=== PATIENT | male | born 1980 | race Caucasian/White ===

== ENCOUNTER 2019-11-21 09:13 | Emergency (ER) | payer MEDICARE, MEDICAID, SELFPAY ==
--- NOTE | ~2019-11-21 | CT_ITS ---
EXAMINATION: CT abdomen pelvis wo con EXAM DATE: 11/21/2019 10:30 INDICATION: Generalized abdominal pain, symptoms 2 days. TECHNIQUE: Spiral CT of the abdomen and pelvis was performed without contrast. Axial, coronal and s agittal images were reviewed. The dose-length product (DLP) for this examination was 1462.81 mGy-cm. The exposure was tailored according to patient size (auto mA exposure control), and iterative recon struction (ASIR) was used as additional dose reduction technique. Comparison is made to prior examina tion from 05/30/2018. FINDINGS: The liver, spleen, adrenal glands and pancreas are unremarkable. The gallbladder is disten ded but otherwise unremarkable. There is no biliary duct dilation. There is no nephrolithiasis or h ydronephrosis. The prostate is unremarkable. The bladder is collapsed at time of imaging limiting evaluation. There is no retroperitoneal or pelvic lymphadenopathy. There is focal outpouching along a portion of jejunum which is presently located in the midabdomen, s ee axial image 98, most likely a jejunal diverticula. There is associated adjacent inflammation. No e vidence of perforation or abscess. The appendix is not positively visualized. There is no pericecal inflammatory change to suggest appendicitis. There is a 3 cm duodenal diverticulum. There is mild s igmoid colonic diverticulosis. There is no adjacent inflammatory change to suggest diverticulitis. T here is expected amount of colonic stool. No free intraperitoneal gas. The heart is normal in siz e. There are no pericardial or pleural effusions. The lung bases are unremarkable. There are no os teoblastic or osteolytic lesions identified. On previous examination there is some nonspecific inflammation along the duodenum and root of the mes entery, uncertain whether or not patient's prior episode was also result of jejunal diverticulitis gi rahel that cannot identify inflammation associated with any specific outpouching on the prior examinati on. IMPRESSION: 1. Jejunal outpouching, adjacent inflammation. Probably acute uncomplicated jejunal diverticulitis. 2. Duodenal, colonic diverticulum Reviewed, dictated and finalized at location B. IMPRESSION: 1. Jejunal outpouching, adjacent inflammation. Probably acute uncomplicated je junal diverticulitis. 2. Duodenal, colonic diverticulum
--- NOTE | 2019-11-21 10:00 | ECG_ITS ---
Measurements Intervals [place] Rate: 102 P: 15 [place]: 145 QRS: -34 QRSD: 101 T: 14 QT: 349 QTc: 457 Interpretive Statements SINUS TACHYCARDIA LEFT AXIS DEVIATION BORDERLINE R WAVE PROGRESSION, ANTERIOR LEADS MINIMAL Q WAVES- HIGH LATERAL LEADS BORDERLINE T WAVE ABNORMALITY- INFERIOR LEADS BORDERLINE ECG Electronically Signed On 11-21-2019 10:24:22 CDT by Polo Madsen D.O.
[2019-11-21 10:17] LABS: Add Urine Microscopic? YES; Appearance Urine Clear (Clear); Basophils Absolute Auto 0.08 K/mm3 (0.00-0.10); Basophils Percent Auto 0.6 % (0.0-1.0); Bilirubin Urine 1+ (Negative); Blood Urine Negative (Negative); Color Urine Yellow (Yellow); Eosinophils Absolute Auto 0.33 K/mm3 (0.02-0.50); Eosinophils Percent Auto 2.3 % (1.0-6.0); Glucose Urine UA Negative (Negative); Hematocrit 44.7 % (40.0-54.0); Hemoglobin 15.3 g/dL (14.0-18.0); Immature Granulocyte Absolute 0.04 K/mm3 (0.00-0.00); Immature Granulocyte Percent A 0.3 % (0.0-0.0); Ketones Urine Trace (Negative); Leukocyte Esterase Ur Negative LEU/UL (Negative); Lymphocytes Absolute Auto 4.89 K/mm3 (1.10-4.50); Lymphocytes Percent Auto 34.4 % (18.0-42.0); Mean Corpuscular HGB Conc 34.2 g/dL (32.0-36.0); Mean Corpuscular Hemoglobin 30.3 pg (27.0-31.0); Mean Corpuscular Volume 88.5 fL (78.0-102.0); Mean Platelet Volume 9.5 fl (8.7-11.0); Monocytes Absolute Auto 0.93 K/mm3 (0.10-0.90); Monocytes Percent Auto 6.5 % (2.0-11.0); Neutrophils Percent Auto 55.9 % (50.0-70.0); Nitrate Urine Positive (Negative); Platelet Count Result 176 K/mm3 (150-420); Protein Urine Trace (Negative); Red Blood Count 5.05 M/mm3 (4.70-6.10); Red Cell Distribution Width 12.3 % (11.6-14.4); White Blood Count 14.2 K/mm3 (4.8-10.8); pH Urine 6.5 (5.0-8.0)
--- NOTE | 2019-11-21 10:17 | ED.ABDPAIN ---
HPI - Abdominal Pain General Chief Complaint: Abdominal Pain Stated Complaint: ABD PAIN Source: patient Limitations: no limitations History of Present Illness HPI narrative: This patient is a 39-year-old male who states he started having abdominal pain approximately 3 days ago. Patient states that initially the pain was in the left side of his abdomen, however it has been spreading more towards the right. He states the abdominal pain encompasses the majority of his abdomen at this point. There are no exacerbating or relieving factors. He does state that he has not been eating very much because he is fearful that will make the pain worse, however it has not made it worse yet. He is having normal bowel movements and normal urination is he denies fevers or chills. He does have a history of pancreatitis, however he states that this is not the same type of pain that he usually has with his pancreatitis. MD elicited complaint: abdominal pain Pertinent past history: none Onset (ago): day(s) ( Three) Pain Consistency: constant Location: diffuse Severity: moderate Quality: aching and sharp ( occasional) Radiation: none Migration to: no migration ( migration throughout the entire abdomen pain seems to move.) Exacerbating factors: nothing Relieving factors: nothing Associated symptoms: denies other symptoms Related Data Home Medications Medication Instructions Recorded Confirmed buprenorphine-naloxone [Suboxone] 3 film SUBLINGUAL DAILY 11/21/19 11/21/19 gabapentin 300 mg PO TID 11/21/19 11/21/19 hydroxyzine pamoate 50 mg PO BID 11/21/19 11/21/19 insulin aspart U-100 [Novolog See Rx Instructions .ROUTE .COMPLEX 11/21/19 11/21/19 Flexpen U-100 Insulin] insulin glargine [Basaglar KwikPen SUBCUT 11/21/19 U-100 Insulin] lisinopril 10 mg PO DAILY 11/21/19 11/21/19 mirtazapine 30 mg PO HS 11/21/19 11/21/19 omeprazole 20 mg PO DAILY 11/21/19 11/21/19 paliperidone palmitate [Invega 234 mg IM MONTHLY 11/21/19 11/21/19 Sustenna] simvastatin 20 mg PO DAILY 11/21/19 11/21/19 vilazodone [Viibryd] 20 mg PO DAILY 11/21/19 11/21/19 Allergies Allergy/AdvReac Type Severity Reaction Status Date / Time Penicillins Allergy Anaphylaxis Verified 11/21/19 09:54 amoxicillin AdvReac Anaphylaxis Verified 11/21/19 09:53 Review of Systems Constitutional: Constitutional: Reports as per HPI and Reports no additional constitutional complaints Eyes: Eyes: Reports as per HPI and Reports no additional eye complaints ENT: Reports system reviewed and no additional complaints, except as documented Cardiovascular: Cardiovascular: Reports no additional cardiovascular complaints Respiratory: Respiratory: Reports no additional respiratory complaints Gastrointestinal: Gastrointestinal: Reports abdominal pain, Denies bloating, Denies constipation, Denies heartburn, Denies diarrhea, Denies nausea and Denies vomiting Genitourinary: Genitourinary: Reports no additional male genitourinary complaints, Denies dysuria and Denies urinary frequency Musculoskeletal: Musculoskeletal: Reports no additional musculoskeletal complaints Integumentary/Breasts: Skin/Breast: Reports system reviewed and no additional complaints, except as docu Neurologic: Reports system reviewed and no additional complaints, except as documented Psychiatric: Psychiatric: Reports no additional psychiatric complaints Hematologic/Lymphatic: Hematologic/Lymphatic: Reports no additional hematologic/lymphatic complaints Allergic/Immunologic: Allergic/Immunologic: Reports no additional allergic/immunologic complaints PMFSH Social History Social History (Updated 11/21/19 @ 10:23 by Lcuy Reyes MD) Smoking status: Current every day smoker Alcohol intake: current Alcohol use details: rare Substance use type: former substance user Exam Const: General: no acute distress and alert Nutritional Appearance: well nourished and obese Orientation/consciousness: patient kathy
[2019-11-21 10:24] LABS: RBC Urine 0-2 /hpf (0-2)
[2019-11-21 10:25] LABS: Bacteria Urine 3+ /hpf; Mucus Urine Heavy /lpf; Squamous Epithelial Cell Urine Occasional /hpf (Few); WBC Urine 0-3 /hpf (0-3)
[2019-11-21 10:30] LABS: Prothrombin Time 10.7 Seconds (9.64-11.0)
[2019-11-21 10:33] LABS: Lactic Acid Reflex 1.4 mmol/L (0.4-2.0)
[2019-11-21 10:43] LABS: Alanine Aminotransferase 29 U/L (16-63); Albumin Level 3.3 g/dL (3.4-5.0); Alkaline Phosphatase 64 U/L (46-116); Anion Gap 12.5 mmol/L (7-16); Aspartate Amino Transferase 16 U/L (15-37); Bilirubin,Total 0.5 mg/dL (0.00-1.00); Blood Urea Nitrogen 15 mg/dL (7-18); Calcium 9.1 mg/dL (8.5-10.1); Carbon Dioxide 27 mmol/L (21-32); Chloride 95 mmol/L (98-108); Estimated Glomerular Filt Rate > 60; Glucose 218 mg/dL (70-99); Lipase 148 U/L (73-393); Osmolality Calculated 277 mOsm/kg (285-295); Potassium 4.5 mmol/L (3.5-5.1); Sodium 130 mmol/L (136-145); Total Protein 8.2 g/dL (6.4-8.2); Troponin I < 0.02 ng/mL (0.00-0.056)
[2019-11-21] MEDS: SODIUM CHLORIDE 0.9% IV 2,000 ML 999 ML IV CONT (10:44)
[2019-11-21 10:49] VITALS: BP 107/68; PULSE 106; RESP 14; TEMP 37.1; O2SAT 94
[2019-11-21 10:51] LABS: Amphetamine Screen Urine Negative (Negative); Barbiturate Screen Urine Negative (Negative); Benzodiazepines Screen Urine Negative (Negative); Cannabinoid Screen Urine Negative (Negative); Cocaine Screen Urine Negative (Negative); Methadone Screen Urine Negative (Negative); Opiate Screen Urine Negative (Negative); Phencyclidine Screen Urine Negative (Negative)
[2019-11-22 11:34] LABS: Glucose Point of Care 237 (65-105)
== END 2019-11-21 12:15 | disposition home or self-care (01) ==
PROVIDERS: Emergency Provider Emergency Medicine; PCP Physician Assistant
DX: K57.92 Diverticulitis of intestine, part unspecified, without perforation or abscess without bleeding (principal); Z79.899 Other long term (current) drug therapy; F17.200 Nicotine dependence, unspecified, uncomplicated
CPT/HCPCS: 36415; 74176; 80053; 80307; 81001; 83605; 83690; 84484; 85025; 85610; 87086; 93005; 96360; 99284; J7030

== ENCOUNTER 2020-01-25 10:14 | Outpatient (CLI) | payer MEDICARE, SELFPAY ==
[2020-01-25 10:25] LABS: Basophils Absolute Auto 0.07 K/mm3 (0.00-0.10); Basophils Percent Auto 0.9 % (0.0-1.0); Eosinophils Absolute Auto 0.24 K/mm3 (0.02-0.50); Hematocrit 47.1 % (40.0-54.0); Hemoglobin 15.4 g/dL (14.0-18.0); Immature Granulocyte Absolute 0.01 K/mm3 (0.00-0.00); Immature Granulocyte Percent A 0.1 % (0.0-0.0); Lymphocytes Absolute Auto 3.99 K/mm3 (1.10-4.50); Lymphocytes Percent Auto 49.8 % (18.0-42.0); Mean Corpuscular HGB Conc 32.7 g/dL (32.0-36.0); Mean Corpuscular Hemoglobin 28.9 pg (27.0-31.0); Mean Corpuscular Volume 88.4 fL (78.0-102.0); Mean Platelet Volume 9.6 fl (8.7-11.0); Monocytes Absolute Auto 0.57 K/mm3 (0.10-0.90); Monocytes Percent Auto 7.1 % (2.0-11.0); Neutrophils Absolute Auto 3.1 K/mm3 (1.7-7.2); Neutrophils Percent Auto 39.1 % (50.0-70.0); Platelet Count Result 167 K/mm3 (150-420); Red Blood Count 5.33 M/mm3 (4.70-6.10); Red Cell Distribution Width 11.9 % (11.6-14.4)
[2020-01-25 10:39] LABS: Hemoglobin A1C 9.8 % (<5.7)
[2020-01-25 11:29] LABS: Alanine Aminotransferase 30 U/L (16-63); Alkaline Phosphatase 85 U/L (46-116); Anion Gap 6 mmol/L (8-16); Aspartate Amino Transferase 31 U/L (15-37); Bilirubin,Total 0.4 mg/dL (0.00-1.00); Blood Urea Nitrogen 8 mg/dL (7-18); Calcium 8.9 mg/dL (8.5-10.1); Carbon Dioxide 30 mmol/L (21-32); Chloride 98 mmol/L (98-108); Cholesterol 154 mg/dL (0-200); Estimated Glomerular Filt Rate > 60; Glucose 300 mg/dL (70-99); HDL Direct 34 mg/dL (40-60); LDL Cholesterol Calculated 67 mg/dL (<130); Osmolality Calculated 287 mOsm/kg (285-295); Potassium 5.4 mmol/L (3.5-5.1); Sodium 134 mmol/L (136-145); Total Protein 8.8 g/dL (6.4-8.2); Triglycerides 264 mg/dL (0-150)
== END 2020-01-25 10:15 | disposition home or self-care (01) ==
PROVIDERS: PCP Physician Assistant; Visit Provider Psychiatry & Neurology Psychiatry
DX: Z79.899 Other long term (current) drug therapy (principal)
CPT/HCPCS: 36415; 80053; 80061; 83036; 85025

== ENCOUNTER 2020-07-22 13:58 | Emergency (ER) | payer MEDICARE, MEDICAID, SELFPAY ==
[2020-07-22 14:00] VITALS: BP 125/77; PULSE 95; RESP 16; TEMP 36.5; O2SAT 98
--- NOTE | 2020-07-22 14:22 | ED.GENADULT ---
HPI - General Adult General Chief complaint: Unspecified Stated complaint: swelling L side of face Source: patient Mode of arrival: ambulatory Limitations: no limitations History of Present Illness HPI narrative: 40-year-old male that presents with some swelling and erythema in the left jaw area and with some tenderness with palpation erythema warmth and tenderness currently no discharge does have a swollen tender submandibular gland on the left with no left ear pain or drainage from the left ear canal, no sore throat no tooth decay it is currently no fever chills no shortness of breath no nausea vomiting. The patient is a diabetic and states his his diabetes is moderately controlled currently there is no diaphoresis no abdominal pain no dysuria. Onset (ago): day(s) Location: face Radiation: non-radiation Severity: moderate Severity scale (1-10): 6 Pain Consistency: intermittent Relieving factors: eating and movement Associated symptoms: denies other symptoms Related Data Home Medications Medication Instructions Recorded Confirmed buprenorphine-naloxone [Suboxone] 3 film SUBLINGUAL DAILY 11/21/19 07/22/20 gabapentin 300 mg PO TID 11/21/19 07/22/20 hydroxyzine pamoate 50 mg PO BID 11/21/19 07/22/20 insulin aspart U-100 [Novolog See Rx Instructions .ROUTE .COMPLEX 11/21/19 07/22/20 Flexpen U-100 Insulin] insulin glargine [Basaglar KwikPen 1 unit SUBCUT DAILY 11/21/19 07/22/20 U-100 Insulin] lisinopril 10 mg PO DAILY 11/21/19 07/22/20 mirtazapine 30 mg PO HS 11/21/19 07/22/20 omeprazole 20 mg PO DAILY 11/21/19 07/22/20 paliperidone palmitate [Invega 234 mg IM MONTHLY 11/21/19 07/22/20 Sustenna] simvastatin 20 mg PO DAILY 11/21/19 07/22/20 vilazodone [Viibryd] 20 mg PO DAILY 11/21/19 07/22/20 Allergies Allergy/AdvReac Type Severity Reaction Status Date / Time Penicillins Allergy Anaphylaxis Verified 11/21/19 09:54 amoxicillin AdvReac Anaphylaxis Verified 11/21/19 09:53 Review of Systems Review of Systems: All systems reviewed & are unremarkable except as noted in HPI and below PMFSH Past Medical History Medical History Diabetes Social History Social History Smoking status: Current every day smoker Alcohol intake: current Substance use type: former substance user Exam Const: General: cooperative HENMT: Head: normal to inspection Head images: 1. Swelling tenderness and erythema with no drainage General nose exam: Normal external nose present Mouth: Yes Normal oral and palatal mucosa present Teeth and gingiva: dentition normal and gingiva normal Throat: posterior oropharynx normal and tonsils normal Eyes: General: appearance normal, both eyes and all related structures EOM: EOMs intact bilaterally Neck: Neck: normal visual inspection Chest: Chest palpation & inspection: normal inspection of the chest Resp: Effort & Inspection: normal respiratory effort and able to speak in complete sentences Auscultation: clear to auscultation bilaterally Cardio: Jugular venous distension: no JVD Palpation: normal PMI GI: Inspection: normal to inspection Percussion: Yes normal to percussion Auscultation: normal bowel sounds Back/Spine/Pelvis: Back: no CVA tenderness Skin: Other: area of erythema and swelling right jaw area right below his left earlobe that is tender and painful and red to touch with no drainage. Neuro: General: oriented to person, oriented to place and oriented to time Psych: Appearance: grossly normal and well kempt Mental Status: mental status grossly normal Course Course Emergency Course: Patient declined any pain medicine will give him a shot of clindamycin IM patient is allergic to penicillins. Did discuss that he needs follow-up with his primary care physician should this not improve after about a week or so. And can take Aleve along with antibiotic t
[2020-07-22] MEDS: CLINDAMYCIN HCL 150 MG CAP 600 MG PO (15:17)
== END 2020-07-22 15:19 | disposition home or self-care (01) ==
PROVIDERS: Emergency Provider Emergency Medicine; PCP Physician Assistant
DX: L03.211 Cellulitis of face (principal)
CPT/HCPCS: 99283; A9270

== ENCOUNTER 2021-04-01 15:37 | Outpatient (CLI) | payer MEDICARE, SELFPAY ==
--- NOTE | 2021-04-01 15:42 | ECG_ITS ---
Measurements Intervals [place] Rate: 97 P: 42 [place]: 150 QRS: -21 QRSD: 106 T: 22 QT: 383 QTc: 488 Interpretive Statements SINUS RHYTHM DELAYED PRECORDIAL R/S TRANSITION PROLONGED QT INTERVAL BASELINE ARTIFACT- V1 ABNORMAL ECG Electronically Signed On 04-01-2021 16:23:36 [employer]RE [employer]ANCER by Polo Madsen D.O.
== END 2021-04-01 15:38 | disposition home or self-care (01) ==
LOC: CHSCARD 15:42
PROVIDERS: PCP Physician Assistant; Visit Provider Internal Medicine Cardiovascular Disease
DX: R07.9 Chest pain, unspecified (principal)
CPT/HCPCS: 93005

== ENCOUNTER 2021-05-06 12:00 | Outpatient (CLI) | payer OTHER, SELFPAY ==
--- NOTE | 2021-05-06 12:10 | EST_ITS ---
Patient Info Name: Adolfo Zambrano Age: 40 years : 1980 Gender: Male Ht: 66 in Wt: 277 lbs BSA: 2.49 m2 Exam Date: 05/06/2021 12:56 PM Exam Location: [place] [facility] Patient Status: Outpatient Admit Date: 05/06/2021 Staff Ordering Physician: Polo Madsen DO Attending Provider: Polo Madsen DO Exam Type: CA stress sadiq w NM Summary 1. 1. Negative lexiscan stress test for ischemic ST changes by ECG criteria. 2. 2. Stable hemodynamics throughout the test. 3. 3. Nuclear scan to follow and will be reported separately. Please correlate with it. 4. 4. Patient informed of the above results. Protocol: LEXISCAN Stress ECG Details Stage: REST Duration (min): 3 min : 39 sec HR (bpm): 84 SBP (mmHg): 120 DBP (mmHg): 74 Stage: REST Duration (min): 6 min : 14 sec HR (bpm): 88 SBP (mmHg): 120 DBP (mmHg): 74 Stage: STAGE 1 Duration (min): 0 min : 6 sec HR (bpm): 86 SBP (mmHg): 120 DBP (mmHg): 74 Stage: RECOVERY Duration (min): 0 min : 53 sec HR (bpm): 105 SBP (mmHg): 120 DBP (mmHg): 74 Stage: RECOVERY Duration (min): 1 min : 53 sec HR (bpm): 93 SBP (mmHg): 131 DBP (mmHg): 76 Stage: RECOVERY Duration (min): 2 min : 53 sec HR (bpm): 91 SBP (mmHg): 132 DBP (mmHg): 77 Stage: RECOVERY Duration (min): 3 min : 53 sec HR (bpm): 90 SBP (mmHg): 131 DBP (mmHg): 76 Stage: RECOVERY Duration (min): 4 min : 53 sec HR (bpm): 91 SBP (mmHg): 127 DBP (mmHg): 76 Stage: RECOVERY Duration (min): 5 min : 53 sec HR (bpm): 88 SBP (mmHg): 127 DBP (mmHg): 77 Stage: RECOVERY Duration (min): 6 min : 3 sec HR (bpm): 87 SBP (mmHg): 127 DBP (mmHg): 77 Rest HR: 88 bpm Peak HR: 106 bpm Rest Sys BP: 120 mmHg Peak Sys BP: 132 mmHg Max Pred HR: 181 bpm % Max Pred HR: 59 % Target HR: 154 bpm Max RPP: 13,992 bpm*mmHg Termination Reason: Completed protocol Cardiac Symptoms: Shortness of breath Total Time: 0 min : 6 sec Rest [place] BP: 74 mmHg Peak [place] BP: 77 mmHg Total Dose: 0.4 mg Resting ECG Sinus rhythm. Stress ECG No ST changes. Arrhythmias None. Report Signatures
--- NOTE | 2021-05-06 15:05 | WPDCARIOSTRE ---
Nuclear Stress Test INDICATIONS Indications: Chest pain PROCEDURE Procedure Performed: Myocardial Perf Spect-Multi Procedure: Patient underwent a lexiscan stress test and immediately was injected with 31.6 mCi of cardiolyte. Multiple tomographic images were obtained. These are of good quality. There is evidence of small size, mild severity apical and inferior perfusion defects during stress imaging. A separate resting images were obtained after patient was injected with 9.4 mCi of cardiolyte. Multiple tomographic images were obtained. These are of good quality. There is evidence of small size, mild severity apical and inferior perfusion defects during rest imaging. CONCLUSION Conclusion: 1. Myocardial perfusion imaging demonstrating fixed small apical and inferior perfusion defects suggestive of diaphragmatic artifact. 2. No evidence of reversible ischemia. 3. Left ventriculogram demonstrates normal measured ejection fraction of 66%. No wall motion abnormalities. 4. TID score 1.06 is normal.
== END 2021-05-06 12:01 | disposition home or self-care (01) ==
LOC: CHSCARD 12:02
PROVIDERS: PCP Physician Assistant; Visit Provider Internal Medicine Cardiovascular Disease
DX: R07.9 Chest pain, unspecified (principal)
CPT/HCPCS: 78452; 93017; A9502; J2785

== ENCOUNTER 2022-10-14 11:33 | Emergency (ER) | payer OTHER, SELFPAY ==
[2022-10-14] VITALS (11 sets, daily range): BP systolic 119–142; BP diastolic 77–95; PULSE 117; RESP 18; TEMP 36.9–37.1; O2SAT 90–96
--- NOTE | ~2022-10-14 | US_ITS ---
EXAMINATION: US right upper quadrant DATE: 10/14/2022 12:39 INDICATION: Right upper quadrant abdominal pain. TECHNIQUE: Multiple grayscale and Doppler ultrasound images of the abdomen were obtained. COMPARISON: CT abdomen and pelvis 11/21/2019 FINDINGS: The visualized portions of the head and body of the pancreas are normal. There is diffuse h epatic steatosis. The gallbladder is distended and contains sludge. No visible gallstones. No gallbla dder wall thickening or sonographic Lind sign. The common duct is normal and measures 4 mm. There i s normal flow in main portal vein. IMPRESSION: 1. Distended gallbladder with sludge, but no wall thickening, visible gallstones, or gallbladder wall thickening to suggest acute cholecystitis. 2. Diffuse hepatic steatosis. Reviewed, dictated and finalized at location A. IMPRESSION: 1. Distended gallbladder with sludge, but no wall thickening, visible gallstone s, or gallbladder wall thickening to suggest acute cholecystitis. 2. Diffuse hepatic steatosis.
--- NOTE | 2022-10-14 11:39 | ED.ABDPAIN ---
HPI - Abdominal Pain General Chief Complaint: Abdominal Pain Stated Complaint: right side abdominal pain Time Seen by Provider: 10/14/22 11:39 Source: patient and RN notes reviewed Mode of arrival: ambulatory Limitations: no limitations History of Present Illness MD elicited complaint: abdominal pain Pertinent past history: none Onset (ago): day(s) (10) Pain Consistency: intermittent Location: RUQ Severity: moderate Quality: cramping and aching Radiation: none Migration to: no migration Exacerbating factors: eating Relieving factors: nothing Associated symptoms: denies other symptoms Related Data Home Medications Medication Instructions Recorded Confirmed insulin aspart U-100 100 unit/mL See Rx Instructions .Route .COMPLEX 11/21/19 10/14/22 (3 mL) subcutaneous pen (Novolog FlexPen U-100 Insulin aspart) mirtazapine 30 mg tablet 30 mg PO HS 11/21/19 10/14/22 omeprazole 20 mg capsule,delayed 20 mg PO DAILY 11/21/19 10/14/22 release paliperidone palmitate 234 mg/1.5 234 mg IM MONTHLY 11/21/19 10/14/22 mL intramuscular syringe (Invega Sustenna) Allergies Allergy/AdvReac Type Severity Reaction Status Date / Time Penicillins Allergy Anaphylaxis Verified 10/14/22 11:43 amoxicillin AdvReac Anaphylaxis Verified 10/14/22 11:43 Review of Systems Review of Systems: All systems reviewed & are unremarkable except as noted in HPI and below PMFSH Past Medical History Medical History (Updated 10/14/22 @ 12:58 by Jose Castellanos MD) Diabetes Dyslipidemia Hypertension Obesity Social History Social History Smoking packs per day: 2 Smoking cigarettes per day: 40.0 Smoking status: Current every day smoker Tobacco type: cigarettes Alcohol intake: current Alcohol use details: rare Substance use type: former substance user Exam Const: General: healthy appearing, no acute distress and alert Nutritional Appearance: well nourished and obese Orientation/consciousness: patient oriented x3 Limitations: no limitations HENMT: Head: normal to inspection Ears: external ears normal Face/Nose/Sinus: Normal external nose present Face and sinus: normal facial exam Mouth: Yes moist mucous membranes Eyes: Conjunctivae: conjunctivae normal Pupils: Equal, round and reactive pupils present EOM: EOMs intact bilaterally Neck: Neck: normal visual inspection Resp: Effort & Inspection: normal respiratory effort Auscultation: clear to auscultation bilaterally Cardio: Rate: regular rate Rhythm: regular rhythm GI: GI Palp: Yes Soft to palpation, Yes Tenderness to palpation present (GI) ( Moderate right upper quadrant), Yes Guarding due to palpation present (GI) ( moderate right upper quadrant) and No Rebound tenderness present Auscultation: normal bowel sounds Other: positive Lind's sign Back/Spine/Pelvis: Back: no CVA tenderness Cervical Spine: cervical ROM normal Thoracic/Lumbar Spine: thoraco-lumbar ROM normal Skin: General skin exam: normal color Rashes: no rashes Neuro: General: patient oriented x3, moves all extremities, no focal motor deficits and CN's II-XI intact bilaterally Speech: normal speech Gait exam (Neuro): Normal gait present Extrem: General: normal to inspection and no clubbing, cyanosis or edema Psych: Mental Status: mental status grossly normal Affect: normal affect Attitude: cooperative Course Vital Signs Vital signs: Vital Signs Temperature 37.1 C 10/14/22 11:33 Pulse Rate 117 H 10/14/22 11:33 Respiratory Rate 18 10/14/22 11:33 Blood Pressure 119/77 10/14/22 11:33 Pulse Oximetry 93 10/14/22 11:33 Oxygen Delivery Room Air 10/14/22 11:33 Temperature 36.9 C 10/14/22 13:14 Pulse Rate 117 H 10/14/22 13:14 Respiratory Rate 18 10/14/22 13:14 Blood Pressure 126/81 10/14/22 13:14 Pulse Oximetry 96 10/14/22 13:14 Oxygen Delivery Room Air 10/14/22 13:14 MDM - A
[2022-10-14 12:17] LABS: Basophils Absolute Auto 0.05 K/mm3 (0.00-0.10); Eosinophils Absolute Auto 0.13 K/mm3 (0.02-0.50); Eosinophils Percent Auto 2.6 % (1.0-6.0); Hematocrit 40.4 % (40.0-54.0); Hemoglobin 14.2 g/dL (14.0-18.0); Immature Granulocyte Absolute 0.01 K/mm3 (0.00-0.00); Immature Granulocyte Percent A 0.2 % (0.0-0.0); Immature Platelet Fraction Pct 1.8 % (1.0-7.0); Lymphocytes Absolute Auto 1.97 K/mm3 (1.10-4.50); Lymphocytes Percent Auto 39.4 % (18.0-42.0); Mean Corpuscular HGB Conc 35.1 g/dL (32.0-36.0); Mean Corpuscular Hemoglobin 32.3 pg (27.0-31.0); Mean Corpuscular Volume 91.8 fL (78.0-102.0); Mean Platelet Volume 9.4 fl (8.7-11.0); Monocytes Absolute Auto 0.42 K/mm3 (0.10-0.90); Monocytes Percent Auto 8.4 % (2.0-11.0); Neutrophils Absolute Auto 2.4 K/mm3 (1.7-7.2); Neutrophils Percent Auto 48.4 % (50.0-70.0); Platelet Count Result 105 K/mm3 (150-420)
[2022-10-14 12:39] LABS: Alanine Aminotransferase 27 U/L (16-63); Albumin Level 3.5 g/dL (3.4-5.0); Alkaline Phosphatase 76 U/L (46-116); Amylase 31 U/L (25-115); Anion Gap 9 mmol/L (8-16); Aspartate Amino Transferase 26 U/L (15-37); Bilirubin,Total 1.1 mg/dL (0.00-1.00); Blood Urea Nitrogen 5 mg/dL (7-18); CRP 3.2 mg/dL (0.0-0.9); Calcium 9.1 mg/dL (8.5-10.1); Carbon Dioxide 28 mmol/L (21-32); Chloride 102 mmol/L (98-108); Estimated CRCL calculation 122 ml/min; Estimated Glomerular Filt Rate > 60; Glucose 180 mg/dL (70-99); Lipase 43 U/L (16-77); Osmolality Calculated 290 mOsm/kg (285-295); Potassium 3.9 mmol/L (3.5-5.1); Sodium 139 mmol/L (136-145); Total Protein 8.6 g/dL (6.4-8.2)
== END 2022-10-14 13:16 | disposition home or self-care (01) ==
PROVIDERS: Emergency Provider Emergency Medicine; PCP Physician Assistant
DX: K82.8 Other specified diseases of gallbladder (principal); E11.9 Type 2 diabetes mellitus without complications; E78.5 Hyperlipidemia, unspecified; I10 Essential (primary) hypertension; E66.01 Morbid (severe) obesity due to excess calories; Z68.41 Body mass index [BMI] 40.0-44.9, adult; F17.210 Nicotine dependence, cigarettes, uncomplicated; Z79.4 Long term (current) use of insulin
CPT/HCPCS: 36415; 76705; 80053; 82150; 83690; 85025; 85055; 86140; 99284

== ENCOUNTER 2023-03-02 14:24 | Emergency (ER) | payer OTHER, SELFPAY ==
[2023-03-02 14:27] VITALS: BP 153/88; PULSE 104; RESP 17; TEMP 37.1; O2SAT 98
[2023-03-02 14:29] LABS: Glucose Point of Care 257 mg/dl (65-105)
--- NOTE | 2023-03-02 14:44 | ECG_ITS ---
Measurements Intervals [place] Rate: 98 P: 27 [place]: 147 QRS: -10 QRSD: 102 T: 0 QT: 378 QTc: 484 Interpretive Statements SINUS RHYTHM MINIMAL VOLTAGE CRITERIA FOR LVH, CONSIDER NORMAL VARIANT [MEETS CRITERIA IN ONE OF: R(aVL), S(V1), R(V5), R(V5/V6)+S(V1)] ABNORMAL ECG COMPARED TO ECG 04/01/2021 15:54:29 PROLONGED QT INTERVAL NO LONGER PRESENT Electronically Signed On 03-04-2023 10:25:36 CDT by Eduardo Sotelo M.D.
--- NOTE | 2023-03-02 14:44 | ED.GENADULT ---
HPI - General Adult General Chief complaint: Recheck/Abnormal Lab/Rx Stated complaint: HYPERGLYCEMIA Time Seen by Provider: 03/02/23 14:36 Source: patient Mode of arrival: ambulatory Limitations: no limitations History of Present Illness HPI narrative: 42 year old male presents to the Emergency Department complaining of elevated blood glucose level for past 3 days. States if it goes below 200 his heart hurts, so he does not want to take his insulin. His sugar was 363 before coming and he did inject 10 U insulin, but did not recheck his sugar. He states he has not sleep in 3 nights because he is afraid to go to sleep in case his sugar gets low. Onset (ago): day(s) (3) Relieving factors: none Exacerbating factors: none Associated symptoms: confusion ( from not sleeping ) Related Data Home Medications Medication Instructions Recorded Confirmed insulin aspart U-100 100 unit/mL See Rx Instructions .Route .COMPLEX 11/21/19 03/02/23 (3 mL) subcutaneous pen (Novolog FlexPen U-100 Insulin aspart) mirtazapine 30 mg tablet 30 mg PO HS 11/21/19 03/02/23 omeprazole 20 mg capsule,delayed 20 mg PO DAILY 11/21/19 03/02/23 release paliperidone palmitate 234 mg/1.5 234 mg IM MONTHLY 11/21/19 03/02/23 mL intramuscular syringe (Invega Sustenna) amitriptyline 50 mg tablet 50 mg PO DAILY 03/02/23 03/02/23 simvastatin 40 mg tablet 40 mg PO DAILY 03/02/23 03/02/23 Allergies Allergy/AdvReac Type Severity Reaction Status Date / Time Penicillins Allergy Anaphylaxis Verified 03/02/23 14:26 amoxicillin AdvReac Anaphylaxis Verified 03/02/23 14:26 Review of Systems Review of Systems: All systems reviewed & are unremarkable except as noted in HPI and below Constitutional: Constitutional: Reports as per HPI, Denies chills, Reports fatigue and Denies fever(s) Eyes: Eyes: Reports as per HPI ENT: Reports system reviewed and no additional complaints, except as documented Cardiovascular: Cardiovascular: Reports as per HPI and Reports chest pain Respiratory: Respiratory: Reports as per HPI, Denies cough and Denies dyspnea Gastrointestinal: Gastrointestinal: Reports as per HPI, Denies diarrhea, Denies nausea and Denies vomiting Genitourinary: Genitourinary: Reports no additional male genitourinary complaints, Denies dysuria and Denies urinary frequency Musculoskeletal: Musculoskeletal: Reports no additional musculoskeletal complaints Integumentary/Breasts: Skin/Breast: Reports system reviewed and no additional complaints, except as docu Neurologic: Reports system reviewed and no additional complaints, except as documented Psychiatric: Psychiatric: Reports anxiety Endocrine: Endocrine: Reports no additional endocrine complaints Hematologic/Lymphatic: Hematologic/Lymphatic: Reports no additional hematologic/lymphatic complaints Allergic/Immunologic: Allergic/Immunologic: Reports no additional allergic/immunologic complaints PMFSH Past Medical History Medical History Diabetes Dyslipidemia Hypertension Obesity Social History Social History Smoking packs per day: 2 Smoking cigarettes per day: 40.0 Smoking status: Current every day smoker Tobacco type: cigarettes Alcohol intake: current Alcohol use details: rare Substance use type: former substance user Exam Const: General: no acute distress Nutritional Appearance: well nourished Orientation/consciousness: patient oriented x3 Limitations: no limitations HENMT: Head: normal to inspection Ears: external ears normal Face/Nose/Sinus: Normal external nose present Face and sinus: normal facial exam Mouth: Yes Normal oral and palatal mucosa present Throat: posterior oropharynx normal Eyes: Conjunctivae: conjunctivae normal Pupils: Equal, round and reactive pupils present EOM: EOMs intact bilaterally Direct Ophthalmoscopy: no photophobia Neck
[2023-03-02 15:10] LABS: Basophils Absolute Auto 0.04 K/mm3 (0.00-0.10); Basophils Percent Auto 0.6 % (0.0-1.0); Eosinophils Absolute Auto 0.05 K/mm3 (0.02-0.50); Eosinophils Percent Auto 0.7 % (1.0-6.0); Hematocrit 40.8 % (40.0-54.0); Hemoglobin 14.2 g/dL (14.0-18.0); Immature Granulocyte Absolute 0.02 K/mm3 (0.00-0.00); Immature Granulocyte Percent A 0.3 % (0.0-0.0); Immature Platelet Fraction Pct 1.8 % (1.0-7.0); Lymphocytes Absolute Auto 1.91 K/mm3 (1.10-4.50); Lymphocytes Percent Auto 27.6 % (18.0-42.0); Mean Corpuscular HGB Conc 34.8 g/dL (32.0-36.0); Mean Corpuscular Hemoglobin 31.1 pg (27.0-31.0); Mean Corpuscular Volume 89.5 fL (78.0-102.0); Mean Platelet Volume 9.2 fl (8.7-11.0); Monocytes Percent Auto 7.2 % (2.0-11.0); Neutrophils Absolute Auto 4.4 K/mm3 (1.7-7.2); Neutrophils Percent Auto 63.6 % (50.0-70.0); Platelet Count Result 107 K/mm3 (150-420); Red Blood Count 4.56 M/mm3 (4.70-6.10); Red Cell Distribution Width 13.1 % (11.6-14.4); White Blood Count 6.9 K/mm3 (4.8-10.8)
[2023-03-02] MEDS: SODIUM CHLORIDE 0.9% IV 1,000 ML 999 ML IV CONT (15:22)
[2023-03-02 15:26] LABS: Alanine Aminotransferase 27 U/L (16-63); Albumin Level 3.7 g/dL (3.4-5.0); Alkaline Phosphatase 70 U/L (46-116); Anion Gap 9 mmol/L (8-16); Aspartate Amino Transferase 14 U/L (15-37); Bilirubin,Total 0.7 mg/dL (0.00-1.00); Blood Urea Nitrogen 5 mg/dL (7-18); Calcium 9.7 mg/dL (8.5-10.1); Carbon Dioxide 28 mmol/L (21-32); Chloride 100 mmol/L (98-108); Estimated Glomerular Filt Rate > 60; Glucose 233 mg/dL (70-99); Osmolality Calculated 288 mOsm/kg (285-295); Potassium 3.9 mmol/L (3.5-5.1); Sodium 137 mmol/L (136-145); Total Protein 8.3 g/dL (6.4-8.2); Troponin I 5.6 ng/L (0.00-60.4)
[2023-03-02 16:07] LABS: Appearance Urine Clear (Clear); Bilirubin Urine Negative (Negative); Blood Urine Negative (Negative); Color Urine Light Yellow (Yellow); Glucose Urine UA Negative (Negative); Ketones Urine Negative (Negative); Leukocyte Esterase Ur Negative (Negative); Nitrate Urine Negative (Negative); Protein Urine Negative (Negative); Specific Grav Ur <= 1.005 (1.010-1.020); Urobilinogen Urine 0.2 mg/dL (0.2-1.0)
[2023-03-02 16:09] LABS: Add Urine Microscopic? NO
[2023-03-02 16:24] LABS: Amphetamine Screen Urine Negative (Negative); Barbiturate Screen Urine Negative (Negative); Benzodiazepines Screen Urine Negative (Negative); Cannabinoid Screen Urine Negative (Negative); Cocaine Screen Urine Negative (Negative); Methadone Screen Urine Negative (Negative); Opiate Screen Urine Negative (Negative); Phencyclidine Screen Urine Negative (Negative)
[2023-03-02 16:40] LABS: Glucose Point of Care 221 mg/dl (65-105)
[2023-03-02 17:04] VITALS: BP 163/87; PULSE 97; RESP 18; TEMP 37.1; O2SAT 99
== END 2023-03-02 17:04 | disposition home or self-care (01) ==
PROVIDERS: Emergency Provider Emergency Medicine; PCP Physician Assistant
DX: E11.65 Type 2 diabetes mellitus with hyperglycemia (principal); Z79.4 Long term (current) use of insulin; I10 Essential (primary) hypertension; E78.5 Hyperlipidemia, unspecified; E66.9 Obesity, unspecified; F17.210 Nicotine dependence, cigarettes, uncomplicated; Z79.899 Other long term (current) drug therapy
CPT/HCPCS: 36415; 80053; 80307; 81003; 82948; 84484; 85025; 85055; 93005; 96360; 99284; J7030

== ENCOUNTER 2023-03-04 07:46 | Emergency (ER) | payer OTHER, SELFPAY ==
[2023-03-04 07:46] VITALS: BP 153/80; PULSE 95; RESP 20; TEMP 36.5; O2SAT 98
[2023-03-04 07:57] LABS: Glucose Point of Care 382 mg/dl (65-105)
--- NOTE | 2023-03-04 08:11 | ED.GENADULT ---
HPI - General Adult General Chief complaint: Unspecified Stated complaint: high blood sugar Time Seen by Provider: 03/04/23 08:10 Source: patient Mode of arrival: ambulatory Limitations: no limitations History of Present Illness HPI narrative: 42-year-old male, smoker with obesity, hypertension, dyslipidemia, diabetes mellitus, psychosis presents to the ER with -- elevated blood sugar. He had a blood sugar of 382. The patient just got out of [facility] where he presented with elevated blood sugars. He was treated with IV fluids and insulin following which his blood sugar decreased to 200. After discharge he went home and ate a banana pudding. -- Patient is unable to sleep as he worries about his elevated blood sugars. He feels that his heart hurts when his blood sugar drops less than 200. The patient has not slept in the last 3 days. -- Complains of generalized tingling all over the body. the patient presented to the ER at [facility] on 03/03/2023 at 2:50 p.m. 6 on 03/04/2023 at 3:00 a.m.. The blood work which was done revealed a normal blood work except decreased platelets of 109 elevated blood sugars of 315 Onset (ago): day(s) Relieving factors: none Exacerbating factors: none Treatments prior to arrival: none Related Data Home Medications Medication Instructions Recorded Confirmed insulin aspart U-100 100 unit/mL See Rx Instructions .Route .COMPLEX 11/21/19 03/04/23 (3 mL) subcutaneous pen (Novolog FlexPen U-100 Insulin aspart) mirtazapine 30 mg tablet 30 mg PO HS 11/21/19 03/04/23 omeprazole 20 mg capsule,delayed 20 mg PO DAILY 11/21/19 03/04/23 release paliperidone palmitate 234 mg/1.5 234 mg IM MONTHLY 11/21/19 03/04/23 mL intramuscular syringe (Invega Sustenna) amitriptyline 50 mg tablet 50 mg PO DAILY 03/02/23 03/04/23 simvastatin 40 mg tablet 40 mg PO DAILY 03/02/23 03/04/23 Allergies Allergy/AdvReac Type Severity Reaction Status Date / Time Penicillins Allergy Anaphylaxis Verified 03/04/23 08:02 amoxicillin AdvReac Anaphylaxis Verified 03/04/23 08:02 Review of Systems Review of Systems: All systems reviewed & are unremarkable except as noted in HPI and below Constitutional: Constitutional: Reports as per HPI and Reports no additional constitutional complaints Eyes: Eyes: Reports as per HPI and Reports no additional eye complaints ENT: Reports system reviewed and no additional complaints, except as documented and Reports as per HPI Cardiovascular: Cardiovascular: Reports as per HPI and Reports no additional cardiovascular complaints Respiratory: Respiratory: Reports as per HPI and Reports no additional respiratory complaints Gastrointestinal: Gastrointestinal: Reports as per HPI and Reports no additional gastrointestinal complaints Genitourinary: Genitourinary: Reports no additional male genitourinary complaints and Reports as per HPI Musculoskeletal: Musculoskeletal: Reports no additional musculoskeletal complaints and Reports as per HPI Integumentary/Breasts: Skin/Breast: Reports system reviewed and no additional complaints, except as docu and Reports as per HPI Neurologic: Reports system reviewed and no additional complaints, except as documented and Reports as per HPI Psychiatric: Psychiatric: Reports no additional psychiatric complaints and Reports as per HPI Endocrine: Endocrine: Reports no additional endocrine complaints and Reports as per HPI Hematologic/Lymphatic: Hematologic/Lymphatic: Reports no additional hematologic/lymphatic complaints and Reports as per HPI Allergic/Immunologic: Allergic/Immunologic: Reports no additional allergic/immunologic complaints and Reports as per HPI PMFSH Past Medical History Medical History Diabetes Dyslipidemia Hypertension Obesity Social History Social History Smoking packs per day: 2 Smoking cigarett
[2023-03-04 08:16] VITALS: BP 140/88; O2SAT 97
--- NOTE | 2023-03-04 08:20 | PC.NURSE ---
RELEASE OF INFORMATION FAXED TO [facility] FOR RECORDS.
--- NOTE | 2023-03-04 08:42 | PC.NURSE ---
RECORDS WERE OBTAINED FROM [facility]
[2023-03-04 08:45] VITALS: O2SAT 98
== END 2023-03-04 09:15 | disposition home or self-care (01) ==
LOC: CHSED 09:01
PROVIDERS: Emergency Provider Internal Medicine Critical Care Medicine; PCP Physician Assistant
DX: E11.9 Type 2 diabetes mellitus without complications (principal); G47.00 Insomnia, unspecified; I10 Essential (primary) hypertension; E78.5 Hyperlipidemia, unspecified; F17.210 Nicotine dependence, cigarettes, uncomplicated; Z79.4 Long term (current) use of insulin; Z79.899 Other long term (current) drug therapy
CPT/HCPCS: 82948; 99282

== ENCOUNTER 2023-04-02 03:39 | Emergency (ER) | payer OTHER, SELFPAY ==
[2023-04-02] VITALS (15 sets, daily range): BP systolic 122–129; BP diastolic 81–83; PULSE 87–106; RESP 18; TEMP 35.7–36.3; O2SAT 93–97
--- NOTE | ~2023-04-02 | CT_ITS ---
CT of the Abdomen and Pelvis: Indication: Abdominal pain Technique: 2.5 mm axial scans were obtained through the abdomen and pelvis following intravenous adm inistration of 100 cc of Omnipaque 350. Dose reduction technique was used on this scan by utilizing a utomated exposure control and iterative reconstruction technique. The dose-length product (DLP) was 1 078.00 mGy-cm. COMPARISON: 11/21/2019 Findings: Scans through the lung bases demonstrate densely calcified, benign-appearing right lower l obe pulmonary nodule. Liver is enlarged, measuring 21.6 cm in length. The pancreas, gallbladder, adrenals and kidneys are w ithin normal limits. Spleen is mildly enlarged. No evidence of aortic aneurysm. There are multiple mi ldly enlarged epigastric/celiac axis/peripancreatic lymph nodes, which are essentially stable from pr ior exam. No bowel obstruction or bowel wall thickening. There is no evidence to suggest acute appendicitis. Images through the pelvis were performed. Urinary bladder unremarkable. No pelvic mass seen. No ascit es. Bilateral L5 pars interarticularis defects are noted. Impression: Multiple mildly enlarged peripancreatic/celiac/epigastric lymph nodes, nonspecific, essentially stabl e from prior exam. Hepatosplenomegaly, nonspecific. Correlate with liver function tests and any relevant clinical histor y. Reviewed, dictated and finalized at location . OFFICER Impression: Multiple mildly enlarged peripancreatic/celiac/epigastric lymph nodes, nonspeci fic, essentially stable from prior exam. Hepatosplenomegaly, nonspecific. Correlate with liver function tests and any re levant clinical history.
--- NOTE | 2023-04-02 03:45 | ED.ABDPAIN ---
HPI - Abdominal Pain General Chief Complaint: Abdominal Pain Stated Complaint: abd pain Time Seen by Provider: 04/02/23 03:45 Source: patient Mode of arrival: ambulatory Limitations: no limitations History of Present Illness HPI narrative: 42-year-old male with a history of smoking, Psychosis,diabetes, dyslipidemia, hypertension, gallbladder sludge and hepatic steatosis presents to the ER with a 1 hour history of -- right upper quadrant abdominal pain. no nausea/vomiting no fever or chills. MD elicited complaint: abdominal pain Onset (ago): hour(s) ( started 1 hour ago) Pain Consistency: intermittent Location: RUQ Severity: mild Quality: aching Radiation: none Migration to: no migration Exacerbating factors: nothing Relieving factors: nothing Associated symptoms: denies other symptoms Related Data Home Medications Medication Instructions Recorded Confirmed mirtazapine 30 mg tablet (Remeron) 30 mg PO HS 11/21/19 04/02/23 omeprazole 20 mg capsule,delayed 20 mg PO DAILY 11/21/19 04/02/23 release blood sugar diagnostic (OneTouch 04/02/23 04/02/23 Ultra Test strips) eszopiclone 1 mg tablet (Lunesta) 1 mg PO PRN PRN Sleep 04/02/23 04/02/23 metformin 500 mg tablet,extended 500 mg PO DAILY 04/02/23 04/02/23 release 24 hr paliperidone palmitate 234 mg/1.5 234 mg IM MONTHLY 04/02/23 04/02/23 mL intramuscular syringe (Invega Sustenna) Allergies Allergy/AdvReac Type Severity Reaction Status Date / Time Penicillins Allergy Rash Verified 04/02/23 03:55 amoxicillin AdvReac Rash Verified 04/02/23 03:55 Review of Systems Review of Systems: All systems reviewed & are unremarkable except as noted in HPI and below Constitutional: Constitutional: Reports as per HPI and Reports no additional constitutional complaints Eyes: Eyes: Reports as per HPI and Reports no additional eye complaints ENT: Reports system reviewed and no additional complaints, except as documented and Reports as per HPI Cardiovascular: Cardiovascular: Reports as per HPI and Reports no additional cardiovascular complaints Respiratory: Respiratory: Reports as per HPI and Reports no additional respiratory complaints Gastrointestinal: Gastrointestinal: Reports as per HPI, Reports no additional gastrointestinal complaints and Reports abdominal pain Genitourinary: Genitourinary: Reports no additional male genitourinary complaints and Reports as per HPI Musculoskeletal: Musculoskeletal: Reports no additional musculoskeletal complaints and Reports as per HPI Integumentary/Breasts: Skin/Breast: Reports system reviewed and no additional complaints, except as docu and Reports as per HPI Neurologic: Reports system reviewed and no additional complaints, except as documented and Reports as per HPI Psychiatric: Comments: confused Endocrine: Endocrine: Reports no additional endocrine complaints and Reports as per HPI Hematologic/Lymphatic: Hematologic/Lymphatic: Reports no additional hematologic/lymphatic complaints and Reports as per HPI Allergic/Immunologic: Allergic/Immunologic: Reports no additional allergic/immunologic complaints and Reports as per HPI PMFSH Past Medical History Medical History Diabetes Dyslipidemia Hypertension Obesity Social History Social History Smoking packs per day: 2 Smoking cigarettes per day: 40.0 Smoking status: Current every day smoker Tobacco type: cigarettes Alcohol intake: current Alcohol use details: rare Substance use type: former substance user Exam Const: General: healthy appearing and no acute distress Nutritional Appearance: well nourished Orientation/consciousness: patient oriented x3 Limitations: no limitations HENMT: Head: normal to inspection Ears: external ears normal Face/Nose/Sinus: Normal external nose present Face and sinus: normal facial exam Candice
--- NOTE | 2023-04-02 03:55 | ECG_ITS ---
Measurements Intervals [place] Rate: 92 P: 9 GA: 138 QRS: -27 QRSD: 108 T: 9 QT: 366 QTc: 454 Interpretive Statements SINUS RHYTHM VOLTAGE CRITERIA FOR LVH BORDERLINE R WAVE PROGRESSION, ANTERIOR LEADS BASELINE ARTIFACT- I, II, III, AVR, AVL, AVF BORDERLINE ECG COMPARED TO ECG 03/02/2023 15:03:48 NO SIGNIFICANT CHANGES Electronically Signed On 04-02-2023 7:59:48 GAMING SURVEILLANCE OBSERVER by Ploo Madsen D.O.
[2023-04-02 04:10] LABS: Basophils Absolute Auto 0.03 K/mm3 (0.00-0.10); Basophils Percent Auto 0.5 % (0.0-1.0); Eosinophils Absolute Auto 0.13 K/mm3 (0.02-0.50); Eosinophils Percent Auto 2.2 % (1.0-6.0); Hematocrit 44.2 % (40.0-54.0); Immature Granulocyte Absolute 0.01 K/mm3 (0.00-0.00); Immature Granulocyte Percent A 0.2 % (0.0-0.0); Immature Platelet Fraction Pct 1.8 % (1.0-7.0); Lymphocytes Absolute Auto 2.32 K/mm3 (1.10-4.50); Lymphocytes Percent Auto 39.9 % (18.0-42.0); Mean Corpuscular HGB Conc 33.9 g/dL (32.0-36.0); Mean Corpuscular Hemoglobin 31.1 pg (27.0-31.0); Mean Corpuscular Volume 91.7 fL (78.0-102.0); Mean Platelet Volume 9.8 fl (8.7-11.0); Monocytes Absolute Auto 0.44 K/mm3 (0.10-0.90); Monocytes Percent Auto 7.6 % (2.0-11.0); Neutrophils Absolute Auto 2.9 K/mm3 (1.7-7.2); Neutrophils Percent Auto 49.6 % (50.0-70.0); Platelet Count Result 101 K/mm3 (150-420); Red Blood Count 4.82 M/mm3 (4.70-6.10); White Blood Count 5.8 K/mm3 (4.8-10.8)
[2023-04-02 04:23] LABS: Partial Thromboplastin Time 27.7 SEC (23.90-30.70)
[2023-04-02 04:26] LABS: Alanine Aminotransferase 95 U/L (16-63); Albumin Level 3.6 g/dL (3.4-5.0); Alkaline Phosphatase 55 U/L (46-116); Anion Gap 13 mmol/L (8-16); Aspartate Amino Transferase 30 U/L (15-37); Bilirubin,Total 0.8 mg/dL (0.00-1.00); Blood Urea Nitrogen 14 mg/dL (7-18); Calcium 9.6 mg/dL (8.5-10.1); Carbon Dioxide 25 mmol/L (21-32); Chloride 100 mmol/L (98-108); Estimated CRCL calculation 110 ml/min; Estimated Glomerular Filt Rate > 60; Glucose 134 mg/dL (70-99); Lactic Acid Reflex 2.1 mmol/L (0.4-2.0); Osmolality Calculated 288 mOsm/kg (285-295); Potassium 3.8 mmol/L (3.5-5.1); Sodium 138 mmol/L (136-145); Total Protein 7.8 g/dL (6.4-8.2)
[2023-04-02 04:27] LABS: Appearance Urine Clear (Clear); Bilirubin Urine Negative (Negative); Blood Urine Negative (Negative); Color Urine Yellow (Yellow); Glucose Urine UA Negative (Negative); Ketones Urine Trace (Negative); Leukocyte Esterase Ur Negative LEU/UL (Negative); Nitrate Urine Negative (Negative); Protein Urine Negative (Negative); Urobilinogen Urine 0.2 mg/dL (0.2-1.0)
[2023-04-02 04:27] LABS: Lipase 51 U/L (16-77); Troponin I 5.1 ng/L (0.00-60.4)
[2023-04-02 04:30] LABS: Add Urine Microscopic? YES; Bacteria Urine Trace /hpf; Mucus Urine Moderate /lpf; RBC Urine 0-2 /hpf (0-2); Squamous Epithelial Cell Urine Few /hpf (Few); WBC Urine 0-3 /hpf (0-3)
[2023-04-02] MEDS: LACTATED RINGERS 1,000 ML 999 ML IV CONT (04:44)
[2023-04-02 07:05] LABS: Reflex Lactic Acid Yes or No Add Lactic
[2023-04-02 21:30] LABS: Glucose Point of Care 131 mg/dl (65-105)
== END 2023-04-02 06:51 | disposition home or self-care (01) ==
PROVIDERS: Emergency Provider Internal Medicine Critical Care Medicine; PCP Physician Assistant
DX: R10.10 Upper abdominal pain, unspecified (principal); E11.9 Type 2 diabetes mellitus without complications; E78.5 Hyperlipidemia, unspecified; I10 Essential (primary) hypertension; Z79.899 Other long term (current) drug therapy; Z79.84 Long term (current) use of oral hypoglycemic drugs; F17.210 Nicotine dependence, cigarettes, uncomplicated
CPT/HCPCS: 36415; 74177; 80053; 81001; 82948; 83605; 83690; 84484; 85025; 85055; 85730; 93005; 96360; 99284; J7120; Q9967

== ENCOUNTER 2023-04-03 11:53 | Emergency (ER) | payer OTHER, SELFPAY ==
[2023-04-03 12:20] VITALS: BP 127/80; PULSE 112; RESP 18; TEMP 36.8; O2SAT 98
[2023-04-03 12:59] LABS: Appearance Urine Clear (Clear); Bilirubin Urine Negative (Negative); Blood Urine Negative (Negative); Color Urine Light Yellow (Yellow); Glucose Urine UA Negative (Negative); Ketones Urine 1+ (Negative); Leukocyte Esterase Ur Negative LEU/UL (Negative); Nitrate Urine Negative (Negative); Protein Urine Negative (Negative); Specific Grav Ur 1.015 (1.010-1.020); Urobilinogen Urine 0.2 mg/dL (0.2-1.0)
--- NOTE | 2023-04-03 13:01 | ED.PSYCH ---
HPI - Psych General Chief Complaint: Psychiatric Symptoms Stated Complaint: Evaluation/hives Time Seen by Provider: 04/03/23 12:21 History of Present Illness HPI Narrative: patient is a 42-year-old male with a significant past medical history that presents today with psychiatric symptoms. Patient recently came in with suicidal ideations and has a history of schizophrenia. He does take medication for this. He takes Invega and is taking this for many years. He is with his mother today his mother thinks that the medication may not be working as well as use to. He is having hallucinations and thinks people stalking him. He thinks that people and telling him to hurt himself. He also has diabetes and is being managed by his primary care physician. He apparently has had an allergic reaction to the metformin. He has been getting hives from it. MD complaint: suicidal ideation and feels depressed Onset (ago): hour(s) Duration: constant History of same: Yes Relieving factors: none Exacerbating factors: none Associated psychiatric symptoms: none Associated symptoms: other ( Allergic reaction to metformin) Treatments prior to arrival: none Related Data Home Medications Medication Instructions Recorded Confirmed mirtazapine 30 mg tablet (Remeron) 30 mg PO HS 11/21/19 04/02/23 omeprazole 20 mg capsule,delayed 20 mg PO DAILY 11/21/19 04/02/23 release blood sugar diagnostic (OneTouch 04/02/23 04/02/23 Ultra Test strips) eszopiclone 1 mg tablet (Lunesta) 1 mg PO PRN PRN Sleep 04/02/23 04/02/23 metformin 500 mg tablet,extended 500 mg PO DAILY 04/02/23 04/02/23 release 24 hr paliperidone palmitate 234 mg/1.5 234 mg IM MONTHLY 04/02/23 04/02/23 mL intramuscular syringe (Invega Sustenna) Allergies Allergy/AdvReac Type Severity Reaction Status Date / Time Penicillins Allergy Rash Verified 04/02/23 03:55 amoxicillin AdvReac Rash Verified 04/02/23 03:55 Review of Systems Constitutional: Constitutional: Reports no additional constitutional complaints Eyes: Eyes: Reports no additional eye complaints ENT: Reports system reviewed and no additional complaints, except as documented Cardiovascular: Cardiovascular: Reports no additional cardiovascular complaints Respiratory: Respiratory: Reports no additional respiratory complaints Gastrointestinal: Gastrointestinal: Reports no additional gastrointestinal complaints Genitourinary: Genitourinary: Reports no additional male genitourinary complaints Musculoskeletal: Musculoskeletal: Reports no additional musculoskeletal complaints Integumentary/Breasts: Skin/Breast: Reports system reviewed and no additional complaints, except as docu Neurologic: Reports system reviewed and no additional complaints, except as documented Psychiatric: Psychiatric: Reports as per HPI Endocrine: Endocrine: Reports no additional endocrine complaints Hematologic/Lymphatic: Hematologic/Lymphatic: Reports no additional hematologic/lymphatic complaints [facility] Past Medical History Medical History Diabetes Dyslipidemia Hypertension Obesity Social History Social History Smoking packs per day: 2 Smoking cigarettes per day: 40.0 Smoking status: Current every day smoker Tobacco type: cigarettes Alcohol intake: current Alcohol use details: rare Substance use type: former substance user Exam Const: General: confusion Other: dishoveled HENMT: Head: normal to inspection Ears: external ears normal Face/Nose/Sinus: Normal external nose present Face and sinus: normal facial exam Eyes: Conjunctivae: conjunctivae normal Pupils: Equal, round and reactive pupils present EOM: EOMs intact bilaterally Neck: Neck: normal visual inspection Chest: Chest palpation & inspection: normal inspection of the chest Resp: Effort & Inspection: normal respiratory effor
[2023-04-03 13:05] LABS: Basophils Absolute Auto 0.02 K/mm3 (0.00-0.10); Basophils Percent Auto 0.3 % (0.0-1.0); Eosinophils Percent Auto 1.6 % (1.0-6.0); Hematocrit 44.9 % (40.0-54.0); Hemoglobin 15.6 g/dL (14.0-18.0); Immature Granulocyte Absolute 0.02 K/mm3 (0.00-0.00); Immature Granulocyte Percent A 0.3 % (0.0-0.0); Lymphocytes Absolute Auto 2.04 K/mm3 (1.10-4.50); Lymphocytes Percent Auto 33.1 % (18.0-42.0); Mean Corpuscular HGB Conc 34.7 g/dL (32.0-36.0); Mean Corpuscular Hemoglobin 31.6 pg (27.0-31.0); Mean Corpuscular Volume 91.1 fL (78.0-102.0); Mean Platelet Volume 9.8 fl (8.7-11.0); Monocytes Absolute Auto 0.41 K/mm3 (0.10-0.90); Monocytes Percent Auto 6.7 % (2.0-11.0); Neutrophils Absolute Auto 3.6 K/mm3 (1.7-7.2); Platelet Count Result 108 K/mm3 (150-420); Red Blood Count 4.93 M/mm3 (4.70-6.10); Red Cell Distribution Width 12.9 % (11.6-14.4); White Blood Count 6.2 K/mm3 (4.8-10.8)
[2023-04-03 13:09] LABS: Amphetamine Screen Urine Negative (Negative); Barbiturate Screen Urine Negative (Negative); Benzodiazepines Screen Urine Negative (Negative); Cannabinoid Screen Urine Negative (Negative); Cocaine Screen Urine Negative (Negative); Methadone Screen Urine Negative (Negative); Opiate Screen Urine Negative (Negative); Phencyclidine Screen Urine Negative (Negative)
[2023-04-03 13:10] LABS: Add Urine Microscopic? NO
[2023-04-03 13:18] LABS: Hemoglobin A1C 7.1 % (<5.7)
[2023-04-03 13:22] LABS: Alanine Aminotransferase 97 U/L (16-63); Albumin Level 3.8 g/dL (3.4-5.0); Alkaline Phosphatase 70 U/L (46-116); Anion Gap 10 mmol/L (8-16); Aspartate Amino Transferase 25 U/L (15-37); Bilirubin,Total 0.8 mg/dL (0.00-1.00); Blood Urea Nitrogen 8 mg/dL (7-18); Calcium 9.3 mg/dL (8.5-10.1); Carbon Dioxide 27 mmol/L (21-32); Chloride 98 mmol/L (98-108); Estimated CRCL calculation 95 ml/min; Estimated Glomerular Filt Rate > 60; Ethanol < 3 mg/dL (0-6); Glucose 205 mg/dL (70-99); Osmolality Calculated 284 mOsm/kg (285-295); Potassium 3.9 mmol/L (3.5-5.1); Sodium 135 mmol/L (136-145); Total Protein 8.4 g/dL (6.4-8.2)
[2023-04-03 13:23] LABS: Acetaminophen < 2 ug/mL (10-30); Salicylate 4.5 mg/dL (2.8-20.0)
[2023-04-03] MEDS: NICOTINE (*PBKC) 21 MG PATCH 1 PATCH TRANSDERM (14:33)
[2023-04-03 14:37] VITALS: BP 117/83; PULSE 88; RESP 20; TEMP 36.9; O2SAT 97
[2023-04-03 14:41] LABS: Glucose Point of Care 282 mg/dl (65-105)
--- NOTE | 2023-04-03 15:47 | PC.NURSE ---
1455 junior in with pt for psych eval. [id number] maria
[2023-04-03 15:48] VITALS: BP 128/75; PULSE 78; RESP 20; TEMP 36.9; O2SAT 97
[2023-04-03 16:29] VITALS: BP 148/78; PULSE 87; RESP 20; TEMP 37.1; O2SAT 97
== END 2023-04-03 16:50 | disposition home or self-care (01) ==
PROVIDERS: Emergency Provider Family Medicine; PCP Physician Assistant
DX: E11.9 Type 2 diabetes mellitus without complications (principal); F20.9 Schizophrenia, unspecified; E78.5 Hyperlipidemia, unspecified; I10 Essential (primary) hypertension; F17.210 Nicotine dependence, cigarettes, uncomplicated; Z79.899 Other long term (current) drug therapy; Z79.84 Long term (current) use of oral hypoglycemic drugs
CPT/HCPCS: 36415; 80053; 80307; 81003; 82948; 83036; 85025; 85055; 96374; 99284; A9270; J1100

== ENCOUNTER 2024-02-10 11:22 | Outpatient (CLI) | payer OTHER, SELFPAY ==
[2024-02-10 11:34] LABS: Basophils Absolute Auto 0.03 K/mm3 (0.00-0.10); Basophils Percent Auto 0.6 % (0.0-1.0); Eosinophils Absolute Auto 0.08 K/mm3 (0.02-0.50); Eosinophils Percent Auto 1.7 % (1.0-6.0); Hematocrit 40.4 % (40.0-54.0); Hemoglobin 13.9 g/dL (14.0-18.0); Lymphocytes Absolute Auto 1.86 K/mm3 (1.10-4.50); Lymphocytes Percent Auto 40.1 % (18.0-42.0); Mean Corpuscular HGB Conc 34.4 g/dL (32-36); Mean Corpuscular Hemoglobin 31.4 pg (27.0-31.0); Mean Corpuscular Volume 91.2 fL (78.0-102.0); Mean Platelet Volume 9.2 fl (8.7-11.0); Monocytes Percent Auto 8.6 % (2.0-11.0); Neutrophils Absolute Auto 2.27 K/mm3 (1.70-7.20); Platelet Count Result 115 K/mm3 (150-420); Red Blood Count 4.43 M/mm3 (4.70-6.10); Red Cell Distribution Width 12.9 % (11.6-14.4); White Blood Count 4.6 K/mm3 (4.8-10.8)
[2024-02-10 11:52] LABS: Creatinine Urine 45.92 mg/dL (40-278); MALB Creatinine Ratio 28.3 mg/g (0-30); Microalbumin Urine Random < 13.0 mg/L
[2024-02-10 12:07] LABS: Alanine Aminotransferase 56 U/L (16-63); Albumin Level 4.4 g/dL (3.4-5.0); Alkaline Phosphatase 81 U/L (46-116); Anion Gap 7 mmol/L (4-12); Aspartate Amino Transferase 26 U/L (15-37); Bilirubin,Total 0.7 mg/dL (0.00-1.00); Blood Urea Nitrogen 13 mg/dL (7-18); Calcium 9.6 mg/dL (8.5-10.1); Carbon Dioxide 31 mmol/L (21-32); Chloride 100 mmol/L (98-108); Cholesterol 166 mg/dL (0-200); Estimated Glomerular Filt Rate > 60; Glucose 98 mg/dL (70-99); HDL Direct 62 mg/dL (40-60); LDL Cholesterol Calculated 91 mg/dL (<130); Osmolality Calculated 286 mOsm/kg (285-295); Potassium 4.9 mmol/L (3.5-5.1); Sodium 138 mmol/L (136-145); Total Protein 8.4 g/dL (6.4-8.2); Triglycerides 64 mg/dL (0-150)
[2024-02-12 07:04] LABS: Hepatitis B Surface Antigen NON-REACTIVE (NON-REACTIVE); Hepatitis C Virus Antibody NON-REACTIVE (NON-REACTIVE)
[2024-02-12 07:14] LABS: Hepatitis A Antibody IgM NON-REACTIVE (NON-REACTIVE); Hepatitis B Core Antibody NON-REACTIVE (NON-REACTIVE)
== END 2024-02-10 11:23 | disposition home or self-care (01) ==
PROVIDERS: PCP Family Medicine; Visit Provider Family Medicine
DX: R74.01 Elevation of levels of liver transaminase levels (principal); E11.9 Type 2 diabetes mellitus without complications; I10 Essential (primary) hypertension
CPT/HCPCS: 36415; 80053; 80061; 80074; 82043; 85025

== ENCOUNTER 2024-02-12 08:52 | Outpatient (CLI) | payer OTHER, SELFPAY ==
--- NOTE | ~2024-02-12 | US_ITS ---
EXAMINATION: US abdomen limited DATE: 02/12/2024 09:11 INDICATION: Right upper quadrant abdominal pain and elevated liver enzymes. TECHNIQUE: Multiple grayscale and Doppler ultrasound images of the abdomen were obtained. COMPARISON: Ultrasound dated 10/14/[address] dated 04/02/2023 FINDINGS: The region of the pancreas is obscured. Liver has normal echogenicity and contour, with a smooth surf obdulia. No liver lesion identified. No intrahepatic biliary duct dilation suspected. Portal venous flow was seen in the hepatopetal, normal direction and has normal Doppler waveform. Gallbladder is dilated to 12.2 x 4.9 cm but without evident gallbladder wall thickening. No cholelithiasis. Normal common b ile duct diameter of 4 mm. Sonographic Lind sign was reported as negative by the lavatory attendant.The in ferior vena cava is not visualized. Visualized portion of the right kidney demonstrates normal echoge nicity with no hydronephrosis. IMPRESSION: 1. Unremarkable right upper quadrant ultrasound with no cholelithiasis or intra or extrahepatic ducta l or ductal dilation. Reviewed, dictated and finalized at location B. IMPRESSION: 1. Unremarkable right upper quadrant ultrasound with no cholelithiasis or intra or extrahepatic ductal or ductal dilation.
== END 2024-02-12 08:53 | disposition home or self-care (01) ==
LOC: CHSIMG 08:53
PROVIDERS: PCP Family Medicine; Visit Provider Family Medicine
DX: R10.11 Right upper quadrant pain (principal); R74.01 Elevation of levels of liver transaminase levels
CPT/HCPCS: 76705

== ENCOUNTER 2024-07-09 07:14 | Outpatient (CLI) | payer OTHER, SELFPAY ==
--- OUTSIDE RECORDS SUMMARY | 2024-07-09 07:18 | XMS_ITS | Encounter Summary ---
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
--- OUTSIDE RECORDS SUMMARY | 2024-07-09 07:18 | XMS_ITS | Clinical Summary ---
Author Organization [facility] Address [address] [place] [address] Care Team Providers Care Siene Maker Name Role Phone Dulce Maria Anna MD Primary Care Provider [phone] Allergies Active Allergy Reactions Criticality Noted Date Comments Amoxicillin Er Unknown 04/11/2014 Aspirin Other (see comment) 04/01/2016 Cramps Penicillins Unknown 04/11/2014 Medications * This document contains information received from the source organization and may not represent a complete record from that organization. lisinopril 2.5 MG tablet daily. 04/03/2018 Active omeprazole 20 MG capsule daily. 1 11/03/2018 Active mirtazapine 30 MG tablet nightly. 12/09/2018 Active Milk Thistle 1000 MG Cap Active INVEGA SUSTENNA 234 MG/1.5ML injection 4 11/19/2018 Active VIIBRYD 20 MG tablet 1 11/15/2018 Active testosterone cypionate 100 MG/ML injection 10/12/2018 Act carmelo GLOBAL EASE INJECT PEN NEEDLES 32G X 4 MM Misc 0 12/13/2018 Active NOVOLOG FLEXPEN 100 UNIT/ML injection (PEN) 5 11/23/2018 Act carmelo TRUE METRIX BLOOD GLUCOSE TEST test strip 11 12/13/2018 Act carmelo Cholecalciferol (VITAMIN D3) 2000 units Cap Activ e SUBOXONE 8-2 MG FILM 12/06/2018 Active Active Problems Problem Noted Date Diagnosed Date Adhesive capsulitis of left shoulder 12/17/2018 Social History Tobacco Use Types Packs/Day Years Used Date Smoking Tobacco: Every Day Cigarettes Smokeless Tobacco: Never Tobacco Cessation:Ready to Q uit: Not Asked; Counseling Given: Not Answered Alcohol Use Standard Drinks/Week Comments No 0 (1 standard drink = 0.6 oz pur e alcohol) AUDIT-C Answer Date Recorded Frequency of Alcohol Consumption Never 12/17/2018 Average Number of Drinks Not on file 019 Frequency of Binge Drinking Not on file 11/23 Sex and Gender Information Value Date Recorded Sex Assigned at Not on file 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 Gender Identity Not on file Sexual Orientation Not on file Last Filed Vital Signs Vital Sign Reading Time Taken Comments Blood Pressure 139/80 03/04/2023 2:38 AM CDT Pulse 94 03/04/2023 2:38 AM CDT Temperature 36.2 C (97.2 F) 03/04/2023 2:38 AM CDT Respiratory Rate 16 03/04/2023 2:38 AM CDT Oxygen Saturation 98% 03/04/2023 2:38 AM CDT Inhaled Oxygen Concentration - - Weight 106.1 kg (234 lb) 03/04/2023 2:38 AM CDT Height 167.6 cm (5' 6 ) 03/04/2023 2:38 AM CDT Body Mass Index 37.77 03/04/2023 2:38 AM CDT Plan of Treatment Health Maintenance Due Date Last Done Comments Annual Physical 1984 Pneumococcal Vaccine: Pediatrics (0 to 5 Years) and At-Risk Patients (6 to 64 Years) (1 of 2 - PCV) 1987 DTaP, Tdap and Td Vaccines (5 - Tdap) 02/24/1998 02/23/1998, 01/18/1986, 06/04/1982, Additional history exists Hepatitis B Vaccines (2 of 3 - 3-dose series) 03/23/1998 02/23/1998 Hepatitis C 1999 COVID-19 Vaccine ( season) 2024 Influenza Adult (#1) 2024 HPV Vaccines Aged Out No longer eligi ble based on patient's age to complete this topic Meningococcal B Vaccine Aged Out No l onger eligible based on patient's age to complete this topic Meningococcal Vaccine Aged Out No hosea jorge eligible based on patient's age to complete this topic RSV Immunizations Under 20 Months Aged Out No longer eligible based on patient's age to complete this topic Insurance MEDICA[employer] Care Teams Siene Maker Relationship Specialty Start Date End Date Dulce Maria Anna MD [address] [place] [address] PCP - General FAMILY PRACTICE 11/29/18
[2024-07-09 08:17] LABS: Thyroid Stimulating Hormone Reflex 1.68 u/IU/mL (0.36-3.74)
[2024-07-09 08:32] LABS: Magnesium 1.9 mg/dL (1.8-2.4); Vitamin B12 527 pg/mL (193-986)
[2024-07-09 08:53] LABS: Folic Acid > 20.0 ng/mL (8.6->20)
== END 2024-07-09 07:15 | disposition home or self-care (01) ==
LOC: CHSLAB 07:15
PROVIDERS: PCP Family Medicine; Visit Provider Family Medicine
DX: E03.9 Hypothyroidism, unspecified (principal); I10 Essential (primary) hypertension; E53.8 Deficiency of other specified B group vitamins
CPT/HCPCS: 36415; 82607; 82746; 83735; 84402; 84403; 84443

== ENCOUNTER 2024-08-18 13:23 | Outpatient (CLI) | payer OTHER, SELFPAY ==
--- NOTE | ~2024-08-18 | XR_ITS ---
EXAMINATION: SACRUM/COCCYX DATE: 08/18/2024 14:01 INDICATION: Tail bone pain and low back pain after fall TECHNIQUE: Three views sacrum/coccyx FINDINGS: No prior studies for comparison. There is no displaced fracture of the sacrum. The coccyx demonstrates overall normal morphology with out acute angulation. IMPRESSION: 1. No acute displaced osseous abnormality of the sacrum. Suspicion for occult or nondisplaced sacral fracture can either be evaluated with CT or MRI. 2. Grossly normal morphology to the coccyx without acute angulation. Reviewed, dictated and finalized at location A.
--- OUTSIDE RECORDS SUMMARY | 2024-08-18 14:16 | XMS_ITS | Encounter Summary ---
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
--- OUTSIDE RECORDS SUMMARY | 2024-08-18 14:16 | XMS_ITS | Clinical Summary ---
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
== END 2024-08-18 13:24 | disposition home or self-care (01) ==
PROVIDERS: PCP Family Medicine; Visit Provider Family Medicine
DX: M53.3 Sacrococcygeal disorders, not elsewhere classified (principal)
CPT/HCPCS: 72220

== ENCOUNTER 2024-08-22 13:22 | Outpatient (RCR) | payer OTHER, SELFPAY ==
--- NOTE | 2024-08-22 14:22 | PTOPEVAL1 ---
Assessment and note entered by Usman Bailey Evaluation Information Assessment Status Evaluation ICD-10 Condition Codes (PT) Pain in low back M54.50,Radiculopathy, sacral and sacrococcygeal region M54.18 Onset 03/23/24 Subjective Information Pt. reports that he injured his low back/tailbone about 6 months ago. He reports that he started walking for exercise around August of 2023. He reports that shortly after he go a bicycle and noticed the pain starting after riding his bike. He reports that he has since quit riding his bike. He reports that his pain has stayed the same intensity since riding the bike. He reports that he has not ridden the bike since last year. He states that his pain is worsened with long periods of sitting. He reports that pain does not affect his sleep at night. He reports that he still remains active and pain is not present when up and walking. He reports that his goal is to improve comfort with sitting. Reported Pain Level Pain Score 5: Self Report Assessment PT Clinical Summary Pt. is a 44 year old male who enters the clinic with sacrococcygeal disorder and low back pain. He presents with indication of degenerative changes to the lumbar spine and pain is more located in the lumbar region on this date. Pt. presents with impaired trunk mobility, impaired proximal l.e. and abdominal strength, impaired postural awareness, impaired flexibility and functional decline due to pain. Continued skilled PT is indicated in order to improve these areas to allow the pt. to improve comfort with IADL performance. Plan of Care Interventions Electrical Stimulation,Gait Training,Hot Pack/Cold Pack,Manual Therapy,Mechanical Traction,Neuro Re- education,Patient/Caregiver Education,Therapeutic Activities,Therapeutic Exercise PT Services Indicated Yes Treatment Frequency and 2x/week x 12 visits Duration These treatments will address the objective and functional deficits as defined above. The patient will be advanced safely and appropriately in order for the patient to progress towards his/her prior level of function. Additional exercises will be introduced and as well as a comprehensive home exercise program upon discharge, if needed, ?to ensure carryover of functional gains achieved in the clinic. This treatment plan has been reviewed and agreement upon by the patient.
--- NOTE | 2024-08-25 09:07 | PCPTNOTE ---
Cancelled session. No authorization yet.
== END 2024-11-20 23:59 | disposition home or self-care (01) ==
LOC: CHSPT 13:22
PROVIDERS: PCP Family Medicine; Visit Provider Family Medicine
DX: M53.3 Sacrococcygeal disorders, not elsewhere classified (principal); M54.50 Low back pain, unspecified; M54.18 Radiculopathy, sacral and sacrococcygeal region
CPT/HCPCS: 97014; 97110; 97140; 97161; G0283

== ENCOUNTER 2024-10-13 15:18 | Outpatient (CLI) | payer OTHER, SELFPAY ==
--- NOTE | ~2024-10-13 | XR_ITS ---
AP and lateral views of the right hip Clinical history: Pain Findings: No acute fracture or dislocation is seen. Osseous alignment is anatomic. There is mild dege nerative change of the right hip joint. Soft tissues are unremarkable. Impression: Mild degenerative change of the right hip joint. Reviewed, dictated and finalized at location . Impression: Mild degenerative change of the right hip joint.
== END 2024-10-13 15:19 | disposition home or self-care (01) ==
PROVIDERS: PCP Family Medicine; Visit Provider Family Medicine
DX: M25.551 Pain in right hip (principal)
CPT/HCPCS: 73502

== ENCOUNTER 2024-10-15 08:48 | Outpatient (CLI) | payer OTHER, SELFPAY | END 2024-10-15 08:49 | disposition home or self-care (01) | LOC: CHSLAB 08:49 | PROVIDERS: PCP Family Medicine; Visit Provider Family Medicine | DX: R23.2 Flushing (principal) | CPT/HCPCS: 36415 ==

== ENCOUNTER 2024-12-14 16:25 | Outpatient (RCR) | payer OTHER, SELFPAY ==
--- NOTE | 2024-12-14 17:38 | OPREHPOC ---
Outpatient Therapy Plan of Care This is a Multidisciplinary Plan of Care that may contain components documented by all disciplines (PT, OT, and ST.) PT Problem 1 PT Problem #1 Knowledge Deficit PT Goal 1 Goal / Goal Update Independent and compliant with HEP. Target Visit 2 PT Problem 2 PT Problem #2 Pain PT Goal 1 Goal / Goal Update Pt to report 0/10 pain at rest. Pt to report no worse than 3/10 pain with prolonged standing/walking. Target Visit 8 PT Problem 3 PT Problem #3 Impaired Strength PT Goal 1 Goal / Goal Update Pt to improve upper and lower core strength to 5/5 . Target Visit 8 PT Problem 4 PT Problem #4 Impaired Functional Mobility PT Goal 1 Goal / Goal Update Pt to be able to walk/stand for more than 20 minutes without low back pain or radicular symptoms. Pt to report 20% or less perceived disability on oswestry. Target Visit 8
--- NOTE | 2024-12-14 17:39 | PTOPEVAL1 ---
Assessment and note entered by Bertha Workman, PT Evaluation Information Assessment Status Evaluation ICD-10 Condition Codes (PT) Pain in low back M54.50,Radiculopathy, lumbar region M54.16 Other ICD-10 Condition Codes ( M54.30 PT) Onset 12/03/24 Subjective Information Pt reports sharp pain that goes from his low back down to his calf. Also notes some occasional numbness in his toes bilaterally but verbalizes history of type 2 diabetes since 2006. He notes difficulty with walking and going up/down stairs due to his symptoms. Pt notes he used to walk up to 12 miles a day but since his pain started he's had a lot of difficulty walking. He does own exercise equipment and frequently exercises at home. Reported Pain Level Pain Score 3: Self Report Assessment PT Clinical Summary Mr. Zambrano is a 44 yo male with PMH of type 2 diabetes mellitus and osteoarthritis presenting to skilled PT evaluation for low back pain with radicular symptoms. His back pain is located higher up in the lumbar spine and into the thoracic spine and he notes sharp pain down the back of his leg into the calf. This pain worsens with bending over as well as with prolonged standing and walking. He demonstrates sufficient LE strength but does have mild core strength deficits that may be contributing to lack of lumbar stability causing radicular symptoms. He will benefit from skilled PT intervention to improve core strength and lumbar mobility to return to full participation in recreational exercise and walking without symptoms. Plan of Care Interventions Electrical Stimulation,Gait Training,Hot Pack/Cold Pack,Manual Therapy,Neuro Re-education,Patient/ Caregiver Education,Therapeutic Activities, Therapeutic Exercise,Self-Care/Home Management PT Services Indicated Yes Treatment Frequency and 2x/week for 8 visits Duration These treatments will address the objective and functional deficits as defined above. The patient will be advanced safely and appropriately in order for the patient to progress towards his/her prior level of function. Additional exercises will be introduced and as well as a comprehensive home exercise program upon discharge, if needed, ?to ensure carryover of functional gains achieved in the clinic. This treatment plan has been reviewed and agreement upon by the patient.
--- NOTE | 2025-01-04 17:06 | OPREHPOC ---
Outpatient Therapy Plan of Care This is a Multidisciplinary Plan of Care that may contain components documented by all disciplines (PT, OT, and ST.) PT Problem 1 PT Problem #1 Knowledge Deficit PT Goal 1 Goal / Goal Update Independent and compliant with HEP. Target Visit 2 Progress Met PT Problem 2 PT Problem #2 Pain PT Goal 1 Goal / Goal Update Pt to report 0/10 pain at rest. Pt to report no worse than 3/10 pain with prolonged standing/walking. Target Visit 14 Progress Not Met PT Problem 3 PT Problem #3 Impaired Strength PT Goal 1 Goal / Goal Update Pt to improve upper and lower core strength to 5/5 . Target Visit 14 Progress Not Met PT Problem 4 PT Problem #4 Impaired Functional Mobility PT Goal 1 Goal / Goal Update Pt to be able to walk/stand for more than 20 minutes without low back pain or radicular symptoms. Pt to report 20% or less perceived disability on oswestry. -Pt to report no pain in the L calf with ambulation -Pt to squat and safely lift 17lbs from floor to waist with safe mechanics Target Visit 14
--- NOTE | 2025-01-04 17:07 | PTOPREEVAL ---
Assessment and note entered by JT File, PT Evaluation Information Assessment Status Re-evaluation ICD-10 Condition Codes (PT) Pain in low back M54.50,Radiculopathy, lumbar region M54.16 Other ICD-10 Condition Codes ( M54.30 PT) Onset 12/03/24 Subjective Information patient reports he is Alright today. he reports the other day he got worked up from a coughing fit and felt he was unable to breathe. he went to the ER and has felt slow and weak since. he reports he has no lower back pain today. he reports mild tightness in the L calf. patient reports he has a history of anxiety, but has been doing well with a new meditation practice until the other day. Reported Pain Level Pain Score 0: Self Report Pain Score 0: Self Report Assessment PT Clinical Summary mr. gudino presents to skilled PT for his 8th skilled PT visit today. he presents with continued pain in the L calf with prolonged standing and walking. he recently had a bout palpitations and feeling his throat was closing that sent him to the ER. he reports since then he has felt weak. he displays decreased core strength, poor ambulation endurance, and pain down the L LE still. continued skilled PT is indicated to address these deficits and improve his functional performance/ quality of life. Plan of Care Interventions Electrical Stimulation,Gait Training,Hot Pack/Cold Pack,Manual Therapy,Neuro Re-education,Patient/ Caregiver Education,Therapeutic Activities, Therapeutic Exercise,Self-Care/Home Management PT Services Indicated Yes Treatment Frequency and continue skilled PT 2x weekly for 6 more visits Duration patient was also educated to follow up with his PCP following his trip to the ER. These treatments will address the objective and functional deficits as defined above. The patient will be advanced safely and appropriately in order for the patient to progress towards his/her prior level of function. Additional exercises will be introduced and as well as a comprehensive home exercise program upon discharge, if needed, ?to ensure carryover of functional gains achieved in the clinic. This treatment plan has been reviewed and agreement upon by the patient.
--- NOTE | 2025-01-19 10:07 | OPREHPOC ---
Outpatient Therapy Plan of Care This is a Multidisciplinary Plan of Care that may contain components documented by all disciplines (PT, OT, and ST.) PT Problem 1 PT Problem #1 Knowledge Deficit PT Goal 1 Goal / Goal Update Independent and compliant with HEP. Target Visit 2 Progress Met PT Problem 2 PT Problem #2 Pain PT Goal 1 Goal / Goal Update Pt to report 0/10 pain at rest. -met Pt to report no worse than 3/10 pain with prolonged standing/walking. -not met Target Visit 14 Progress Partially Met PT Problem 3 PT Problem #3 Impaired Strength PT Goal 1 Goal / Goal Update Pt to improve upper and lower core strength to 5/5 . - partially met Target Visit 14 Progress Partially Met PT Problem 4 PT Problem #4 Impaired Functional Mobility PT Goal 1 Goal / Goal Update Pt to be able to walk/stand for more than 20 minutes without low back pain or radicular symptoms. -not met Pt to report 20% or less perceived disability on oswestry. -not met Pt to report no pain in the L calf with ambulation -not met Pt to squat and safely lift 17lbs from floor to waist with safe mechanics -met but pt experiences pain with lifting Target Visit 14 Progress Partially Met
--- NOTE | 2025-01-19 10:08 | PTOPDC ---
Assessment and note entered by Bertha Workman, PT Evaluation Information Assessment Status Discharge ICD-10 Condition Codes (PT) Pain in low back M54.50,Radiculopathy, lumbar region M54.16 Other ICD-10 Condition Codes ( M54.30 PT) Onset 12/03/24 Subjective Information Pt reports he's alright today. He denies back pain at rest but reports his pain still worsens with prolonged standing. His pain still goes down his legs when standing and he has also been experience more calf pain, reporting that his low back pain goes down to the calves and he also may have stasis per his doctor causing calf pain. He has been trying to do his home exercises when he can while also taking care of his dad. Reported Pain Level Pain Score 3,0: Self Report Pain Score 0: Self Report Assessment PT Clinical Summary Mr. Zambrano has attended 12 skilled PT visits for low back pain. His back pain is improved overall however he still experiences pain and radicular symptoms with prolonged standing. He also continues to note low back pain with exercise and lifting, and his functional mobility is further complicated by new calf pain. Pt also reports increased perceived disability on Oswestry questionnaire. He would benefit from follow up with MD and imaging of the lumbar spine to further assess the root cause of his symptoms. Educated pt to continue HEP as able and follow up after doctor's visit. Plan of Care PT Services Indicated No
== END 2025-01-19 13:27 | disposition home or self-care (01) ==
LOC: CHSPT 16:25
PROVIDERS: PCP Family Medicine; Visit Provider Family Medicine
DX: M54.16 Radiculopathy, lumbar region (principal); M54.30 Sciatica, unspecified side
CPT/HCPCS: 97110; 97112; 97161; 97530

== ENCOUNTER 2024-12-31 11:49 | Emergency (ER) | payer OTHER, SELFPAY ==
[2024-12-31 11:49] VITALS: BP 134/91; PULSE 79; RESP 16; TEMP 36.4; O2SAT 100
--- OUTSIDE RECORDS SUMMARY | 2024-12-31 11:57 | XMS_ITS | Clinical Summary ---
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 Gender Identity Not on file Sexual Orientation [...] 2:38 AM CDT Height 167.6 cm (5' 6) 03/04/2023 2:38 AM CDT Body Mass Index 37.77 03/04/2023 2:38 AM CDT Plan of Treatment Health Maintenance Due Date Last Done Comments Annual Physical 1984 DTaP, Tdap and Td Vaccines (5 - Tdap) 02/24/1998 02/23/1998, 01/18/1986, 06/04/1982, Additional history exists Hepatitis B Vaccines (2 of 3 - 3-dose series) 03/23/1998 02/23/1998 Hepatitis C 1999 Pneumococcal Vaccine: Pediatrics (0 to 5 Years) and At-Risk Patients (6 to 49 Years) (1 of 2 - PCV) 2000 HPV Vaccines (1 - 3-dose SCDM series) 2008 COVID-19 Vaccine ( season) 2024 Meningococcal B Vaccine Aged Out No l onger eligible based on patient's age to complete this topic Meningococcal Vaccine Aged Out No hosea jorge eligible based on patient's age to complete this topic RSV Immunizations Under 20 Months Aged Out No longer eligible based on patient's age to complete this topic Insurance MEDICAID [employer] Care Teams Hydrometeorologist Relationship Specialty Start Date End Date Dulce Maria Anna MD [address] [place] [id number] PCP - General FAMILY PRACTICE 11/29/18
--- OUTSIDE RECORDS SUMMARY | 2024-12-31 11:57 | XMS_ITS | Encounter Summary ---
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
--- NOTE | 2024-12-31 12:17 | ED_ITS ---
HPI - URI/Sore Throat General Chief Complaint: Upper Respiratory Infection Stated Complaint: sore throat Source: patient Mode of arrival: ambulatory Limitations: no limitations History of Present Illness HPI Narrative: 44-year-old male with a history of hypertension, dyslipidemia presents to the ED with a 1 month history of -- difficulty swallowing. The patient is sitting in an emesis bag while being evaluated. This has been going on for the past 1 month. -- Patient is unable to talk. When he talks he starts gagging. No fever or chills no throat pain. no upper respiratory tract symptoms Onset (ago): month(s) ( 1 month) Consistency: constant Able to tolerate fluids by mouth: Yes Exacerbating factors: nothing Relieving factors: nothing Associated symptoms: denies other symptoms Treatments prior to arrival: none Related Data Home Medications ?Medication ?Instructions ?Recorded ?Confirmed ?Last Taken ?Type melatonin 10 mg capsule 10 mg PO QHS 11/04/23 10/13/24 Unknown History ascorbate calcium (vitamin C) 500 500 mg PO BID 10/13/24 10/13/24 Unknown History mg tablet cetirizine 10 mg tablet 10 mg PO DAILY PRN 10/13/24 10/13/24 Unknown History cholecalciferol (vitamin D3) 125 125 mcg PO DAILY 10/13/24 10/13/24 Unknown History mcg (5,000 unit) capsule magnesium hydroxide 400 mg (170 mg mg PO 10/13/24 10/13/24 Unknown History magnesium) chewable tablet quercetin 500 mg capsule mg PO 10/13/24 10/13/24 Unknown History Allergies Allergy/AdvReac Type Severity Reaction Status Date / Time Penicillins Allergy Rash Verified 12/31/24 12:01 amoxicillin AdvReac Rash Verified 12/31/24 12:01 Review of Systems Review of Systems: All systems reviewed & are unremarkable except as noted in HPI and below PMFSH Past Medical History Medical History Bone spur Obesity Dyslipidemia Hypertension Surgical History Surgical History History of bunionectomy History of appendectomy Family History Family History Father Emphysema lung CHF (congestive heart failure) Hypothyroidism Hypertension Mother Diabetes mellitus Social History Social History Smoking packs per day: 0 Smoking cigarettes per day: 0.0 Smoking status: Former smoker Tobacco type: cigarettes Alcohol intake: former Alcohol use details: rare Substance use type: former substance user Do You Feel Safe in your Home?: Yes Lack of Transportation: No Lack of Food: Sometimes True Current Housing: I Do Not Have Housing Concerned About Future Housing: No Difficulty Paying Gas/Electric Bills: No Difficulty Paying for Meds: No Currently Unemployed: No Education: Trade/Vocational Certificate Exam Narrative: blood pressure is 134/91. Const: General: no acute distress Orientation/consciousness: patient oriented x3 HENMT: Head: normal to inspection Ears: external ears normal and TM's normal bilaterally ( Bilateral tympanic membrane is scarred.) Face/Nose/Sinus: Normal external nose present and Normal nares present Face and sinus: normal facial exam Mouth: Yes Normal oral and palatal mucosa present Teeth and gingiva: dentition normal Throat: posterior oropharynx normal Eyes: Conjunctivae: conjunctivae normal Pupils: Equal, round and reactive pupils present EOM: EOMs intact bilaterally Direct Ophthalmoscopy: no jamila tophobia Neck: Neck: normal visual inspection, no lymphadenopathy and no meningeal signs Other: No stridor noted Chest: Chest palpation & inspection: normal inspection of the chest Resp: Effort & Inspection: normal respiratory effort Auscultation: clear to auscultation bilaterally Cardio: Rate: regular rate Rhythm: regular rhythm GI: GI Palp: Yes Soft to palpation Auscultation: normal bowel sounds Other: no tenderness/rigidity /rebound : General: Yes no CVA tenderness Back/Spine/Pelvis: Back: no CVA tenderness Skin: General skin exam: normal color Rashes: no rashes Wounds: no wounds Neuro: General: patient oriented x3, moves all extremities, no meningeal s igns, no focal motor deficits and CN's II-XI intact bilaterally Cranial nerves: Yes Nystagmus not present Speech: normal speech Gait exam (Neuro): Normal gait present Extrem: General: normal to inspection and no clubbing, cyanosis or edema Psych: Mental Status: mental status grossly normal Affect: normal affect Attitude: cooperative Course Course Emergency Course: difficulty swallowing and talking-- anxiety tested negative for RSV /influenza / COVID. Vital Signs Vital signs: Vital Signs Temperature 36.4 C 12/31/24 11:49 Pulse Rate 79 12/31/24 11:49 Respiratory Rate 16 12/31/24 11:49 Blood Pressure 134/91 H 12/31/24 11:49 Pulse Oximetry 100 12/31/24 11:49 Oxygen Delivery Room Air 12/31/24 11:49 Temperature 36.4 C 12/31/24 11:49 Pulse Rate 68 12/31/24 12:47 Respiratory Rate 16 12/31/24 12:47 Blood Pressure 129/77 12/31/24 12:47 Pulse Oximetry 100 12/31/24 12:47 Oxygen Delivery Room Air 12/31/24 12:47 MDM - URI/Sore Throat MDM Narrative Medical decision making narrative: Upper respiratory tract infection anxiety Differential Diagnosis Differential diagnosis: Likely viral infection Lab Data Attestation: I reviewed the patient's lab results. Labs: Lab Results 12/31/24 Range/Units 12:25 Influenza A (RT-PCR) Negative (Negative) Influenza B (RT-PCR) Negative (Negative) RSV (RT-PCR) Negative (Negative) SARS-CoV-2 RNA (RT-PCR) Negative (Negative) Discharge Plan Discharge Clinical Impression: Anxiety Upper respiratory infection Qualifiers: URI type: unspecified URI Qualified Code(s): J06.9 - Acute upper respiratory infection, unspecified Patient Disposition: Home Condition: Stable Instructions: Antibiotic Form, Upper Respiratory Infection (ED), Anxiety (ED) Patient Language: Moroccan Prescriptions: No Action cetirizine 10 mg tablet 10 mg PO DAILY PRN magnesium hydroxide 400 mg (170 mg magnesium) tablet,chewable PO cholecalciferol (vitamin D3) 125 mcg (5,000 unit) capsule 125 mcg PO DAILY quercetin 500 mg capsule PO ascorbate calcium (vitamin C) 500 mg tablet 500 mg PO BID melatonin 10 mg capsule 10 mg PO QHS Follow-up/Referrals: Donato Cash DO [Primary Care Provider] - Time of Disposition: 13:13
[2024-12-31 12:47] VITALS: BP 129/77; PULSE 68; RESP 16; O2SAT 100
[2024-12-31 13:09] LABS: Influenza A QL RT-PCR Negative (Negative); Influenza B QL RT-PCR Negative (Negative); RSV RNA, RT-PCR Negative (Negative); SARS-CoV-2 RNA PCR Negative (Negative)
== END 2024-12-31 13:20 | disposition home or self-care (01) ==
PROVIDERS: Emergency Provider Internal Medicine Critical Care Medicine; PCP Family Medicine
DX: F41.9 Anxiety disorder, unspecified (principal); J06.9 Acute upper respiratory infection, unspecified; I10 Essential (primary) hypertension; E78.5 Hyperlipidemia, unspecified; Z87.891 Personal history of nicotine dependence; Z20.822 Contact with and (suspected) exposure to COVID-19
CPT/HCPCS: 87637; 99283

== ENCOUNTER 2025-02-11 07:20 | Outpatient (CLI) | payer OTHER, SELFPAY ==
--- NOTE | ~2025-02-11 | MR_ITS ---
EXAMINATION: MR lumbar spine wo con DATE: 02/11/2025 07:59 INDICATION: Mid back pain. TECHNIQUE: Magnetic resonance imaging (MRI) of the lumbar spine was performed without intravenous contrast. Sequences included sagittal T2-weighted FSE, sagittal T2-weighted FS FSE, sagittal T1-weighted FSE, and axial T2-weighted FSE. COMPARISON: None FINDINGS: There are chronic bilateral L5 pars defects. There is 3 mm anterolisthesis of L5 on S1. There is mild chronic anterior wedging of T12 vertebral body. There are Schmorl's nodes at most levels. Intervertebral disc heights are normal. The distal spinal cord signal intensity is normal. The conus medullaris is at T12-L1. The following disc levels are specifically discussed: L1-L2: The disc does not extend beyond the endplate margin. There is moderate bilateral facet joint osteoarthritis. There is no neural foraminal stenosis. There is no central canal stenosis. L2-L3: The disc does not extend beyond the endplate margin. There is mild bilateral facet joint osteoarthritis. There is no neural foraminal stenosis. There is no central canal stenosis. L3-L4: The disc is bulging. There is mild bilateral facet joint osteoarthritis. There is mild bilateral neural foraminal stenosis. There is no central canal stenosis. L4-L5: The disc does not extend beyond the endplate margin. There is mild right facet joint osteoarthritis. There is no neural foraminal stenosis. There is no central canal stenosis. L5-S1: The disc is bulging. There is mild bilateral facet joint osteoarthritis. There is mild bilateral neural foraminal stenosis. There is mild central canal stenosis. IMPRESSION: 1. Chronic bilateral L5 pars defects with grade 1 anterolisthesis of L5 on S1. 2. Mild lumbar spondylosis. Reviewed, dictated and finalized at location E.
== END 2025-02-11 07:21 | disposition home or self-care (01) ==
LOC: CHSIMG 07:21
PROVIDERS: PCP Family Medicine; Visit Provider Family Medicine
DX: M47.816 Spondylosis without myelopathy or radiculopathy, lumbar region (principal); M54.50 Low back pain, unspecified; G89.29 Other chronic pain
CPT/HCPCS: 72148

== ENCOUNTER 2025-04-28 13:18 | Outpatient (CLI) | payer OTHER, SELFPAY ==
--- NOTE | ~2025-04-28 | XR_ITS ---
[id number] Indication: Chronic cervical pain x6 months; worsening. NKI Comparison: None Findings: The vertebral heights are intact. No fracture or subluxation. The disc heights are intact. Soft tissues unremarkable Impression: No acute abnormality. Reviewed, dictated and finalized at location P. ETOLOGY EDUCATOR Impression: No acute abnormality.
[2025-04-28 13:42] LABS: Hematocrit 38.6 % (40.0-54.0); Hemoglobin 13.0 g/dL (14.0-18.0); Mean Corpuscular HGB Conc 33.7 g/dL (32-36); Mean Corpuscular Hemoglobin 31.3 pg (27.0-31.0); Mean Corpuscular Volume 92.8 fL (78.0-102.0); Platelet Count Result 105 K/mm3 (150-420); Red Blood Count 4.16 M/mm3 (4.70-6.10); White Blood Count 3.8 K/mm3 (4.8-10.8)
[2025-04-28 13:50] LABS: Hemoglobin A1C < 4.7 % (<5.7)
[2025-04-28 13:53] LABS: Alanine Aminotransferase 29 U/L (6-50); Albumin Level 4.8 g/dL (3.5-5.1); Alkaline Phosphatase 51 U/L (38-126); Anion Gap 8 mmol/L (4-12); Aspartate Amino Transferase 30 U/L (17-59); Bilirubin,Total 0.5 mg/dL (0.2-1.3); Blood Urea Nitrogen 14 mg/dL (9-20); Calcium 9.2 mg/dL (8.4-10.2); Carbon Dioxide 28 mmol/L (22-30); Chloride 104 mmol/L (98-107); Cholesterol 166 mg/dL (0-200); Estimated Glomerular Filt Rate > 60; Glucose 86 mg/dL (65-110); HDL Direct 72 mg/dL; MALB Creatinine Ratio 26.7 mg/g (0-30); Osmolality Calculated 289 mOsm/kg (285-295); Potassium 4.4 mmol/L (3.4-5.0); Sodium 140 mmol/L (137-145); Total Protein 8.1 g/dL (6.3-8.2); Triglycerides 95 mg/dL (<150)
[2025-04-28 14:03] LABS: Band Neutrophils Percent 0 % (0-6); Basophils Absolute Manual 0.00 K/mm3 (0-0.1); Basophils Percent Manual 0 % (0-1); Eosinophils Absolute Manual 0.11 K/mm3 (0.02-0.50); Eosinophils Percent Manual 3 % (1-6); Lymphocytes Absolute Manual 1.52 K/mm3 (1.1-4.5); Lymphocytes Percent Manual 40 % (18-44); Monocytes Absolute Manual 0.34 K/mm3 (0.1-0.90); Monocytes Percent Manual 9 % (3-9); Neutrophils Absolute Manual 1.82 K/mm3 (1.3-6.7); Neutrophils Percent Manual 48 % (46-73); Total Cells Counted 100
[2025-04-28 14:30] LABS: Thyroid Stimulating Hormone Reflex 1.060 uIU/mL (0.465-4.68)
[2025-04-28 14:59] LABS: Vitamin B12 450.0 pg/mL (239-931)
== END 2025-04-28 13:19 | disposition home or self-care (01) ==
LOC: CHSLAB 13:19
PROVIDERS: PCP Family Medicine; Visit Provider Family Medicine
DX: E11.9 Type 2 diabetes mellitus without complications (principal); G62.9 Polyneuropathy, unspecified; E03.9 Hypothyroidism, unspecified; E53.8 Deficiency of other specified B group vitamins; M54.50 Low back pain, unspecified; G89.29 Other chronic pain; M54.2 Cervicalgia
CPT/HCPCS: 36415; 72040; 80053; 80061; 82043; 82607; 82746; 83036; 84443; 85025